=== PATIENT | female | born 1960 | race Caucasian/White ===

== ENCOUNTER 2016-10-22 13:05 | Emergency (ER) | payer MEDICARE ==
[2016-10-22 15:18] LABS: BASOPHILS 0.4 % (0-2); EOSINOPHILS 1.7 % (0-7); HEMATOCRIT 39.7 % (36.0-48.0); HEMOGLOBIN 13.2 g/dL (12-16); IMMATURE GRANULOCYTES 0.3 % (0-5); LYMPHOCYTES 36.2 % (15-50); MCH 30.6 pg (26.0-34.0); MCHC 33.2 g/dL (31.0-37.0); MCV 91.9 fL (80.0-100.0); MEAN PLATELET VOLUME 9.3 fL (7.4-10.4); MONOCYTES 5.2 % (2-11); NEUTROPHILS 56.2 % (40-80); PLATELET COUNT 212 10x3/uL (130-400); RBC 4.32 10x6/uL (4.00-5.40); RDW 13.4 % (11.5-14.5); WBC 10.5 10x3/uL (4.8-10.8)
[2016-10-22 15:28] LABS: APPEARANCE CLEAR (CLEAR); BILIRUBIN NEGATIVE (NEGATIVE); COLOR YELLOW (YELLOW); GLUCOSE NEGATIVE (NEGATIVE); KETONE NEGATIVE (NEGATIVE); LEUKOCYTE ESTERASE NEGATIVE (NEGATIVE); NITRITE NEGATIVE (NEGATIVE); PROTEIN TRACE mg/dL (NEGATIVE); UROBILINOGEN NORMAL (NORMAL)
[2016-10-22 15:44] LABS: ALBUMIN 3.6 g/dL (3.4-5.0); ANION GAP 11.3 mmol/L (8-16); BILIRUBIN - TOTAL 0.24 mg/dL (0.2-1.3); CALCIUM 10.4 mg/dL (8.5-10.1); CARBON DIOXIDE 28.7 mmol/L (21.0-32.0); PROTEIN - SERUM 7.7 g/dL (6.4-8.2)
== END 2016-10-22 16:30 | disposition home or self-care (01) ==
LOC: D.ER 13:05
PROVIDERS: Emergency Medicine
DX: R10.9 Unspecified abdominal pain (principal); E11.9 Type 2 diabetes mellitus without complications; I10 Essential (primary) hypertension; F17.200 Nicotine dependence, unspecified, uncomplicated

== ENCOUNTER → 2017-02-23 09:46 | Outpatient (CLI) | payer MEDICARE | END | disposition home or self-care (01) | LOC: D.MAMMO 09:46 | DX: N63 Unspecified lump in breast (principal) ==

== ENCOUNTER → 2018-07-05 16:49 | Outpatient (CLI) | payer MEDICARE | END | disposition home or self-care (01) | LOC: D.CT 16:49 | DX: R22.1 Localized swelling, mass and lump, neck (principal) ==

== ENCOUNTER 2018-08-18 08:00 | Day surgery (SDC) | payer MEDICARE ==
[2018-08-16 16:27] LABS: BASOPHILS 0.2 % (0-2); EOSINOPHILS 1.5 % (0-7); HEMATOCRIT 35.7 % (36.0-48.0); HEMOGLOBIN 11.7 g/dL (12-16); IMMATURE GRANULOCYTES 0.2 % (0-5); LYMPHOCYTES 30.2 % (15-50); MCH 29.8 pg (26.0-34.0); MCHC 32.8 g/dL (31.0-37.0); MCV 90.8 fL (80.0-100.0); MEAN PLATELET VOLUME 9.6 fL (7.4-10.4); MONOCYTES 5.5 % (2-11); NEUTROPHILS 62.4 % (40-80); PLATELET COUNT 240 10x3/uL (130-400); RBC 3.93 10x6/uL (4.00-5.40); RDW 15.6 % (11.5-14.5); WBC 12.6 10x3/uL (4.8-10.8)
[2018-08-16 16:40] LABS: ANION GAP 18.1 mmol/L (8-16); CARBON DIOXIDE 22.8 mmol/L (21.0-32.0); CREATININE - SERUM 1.3 mg/dL (0.6-1.3); POTASSIUM - SERUM 3.9 mmol/L (3.5-5.1)
[~2018-08-18] VITALS: Ht 162.6 cm; Wt 91.6 kg
--- NOTE | ~2018-08-18 | OP ---
PATIENT NAME: NAUN CHAVEZ MEDICAL RECORD: [id number] :60 LOCATION:.FORMERLY [facility] ADMISSION DATE: SURGEON: NICOLE BERNARDO MD DATE OF OPERATION: 08/18/2018 PREOPERATIVE DIAGNOSES: High-grade cervical dysplasia. POSTOPERATIVE DIAGNOSIS: High-grade cervical dysplasia. PROCEDURE: Loop electrosurgical excision procedure. SURGEON: Nicole Bernardo MD ANESTHESIA: General by LMA. INTRAVENOUS FLUIDS: Per anesthesia record. FINDINGS: 1. Grossly normal-appearing external genitalia. 2. Grossly normal-appearing cervix. SPECIMENS: Cervical cone biopsy. COMPLICATIONS: None apparent. ESTIMATED BLOOD LOSS: Minimal. PROCEDURE IN DETAIL: The patient was taken to the operating room where general anesthesia was achieved without difficulty. The patient was then prepped and draped in normal sterile fashion in the dorsal lithotomy position in the [facility]. Following prep and drape, the bladder was drained of approximately 20 cc of clear yellow urine. An insulated Graves speculum was placed into the vagina and the cervix was identified. A 2 cm x 1 cm loop electrode tip was then used to excise the exocervix to a depth of approximately 7-8 mm. A second smaller LEEP electrode tip was then used to remove some more of the endocervical canal. The cervical crater was then cauterized using the ball tip bipolar cautery. Good hemostasis was noted from the cervical LEEP site and ferrous subsulfate was placed on the area to prevent bleeding. The patient tolerated the procedure well. Speculum was removed from the vagina. The patient was transferred to postanesthesia recovery stable without incident. TRANSINT:[id number] Voice Confirmation ID: [id number] DOCUMENT ID: [id number] NICOLE BERNARDO MD CC: [id number] DICTATION DATE: 08/26/18705 ELECTRICAL SIGN SERVICER: 08/26/18 10[address] [facility] 08/18/18 [place] [address]
[~2018-08-18 08:00] MED LIST: AMBIEN10 MG PO; ATIVAN2 MG PO; BAYER CHEWABLE81 MG PO; BREO ELLIPTA 21 EACH; CYCLOBENZAPRINE10 MG PO; FLUTICASONE PRO16 GM NASAL; GLIMEPIRIDE2 MG PO; GLUCOPHAGE1000 MG PO; LISINOPRIL-HCT1 EAC7 PO; LYRICA75 MG PO; NORVASC10 MG PO; OMEPRAZOLE DR 20 MG; OXYBUTYNIN CHLOR5 M1 PO; PROVENTIL/2.5 MG/3 M INH; SINGULAIR10 MG PO; TRESIBA FL100 UNIT/1 SC; ZOLOFT100 MG PO; ZYLOPRIM300 MG PO
[2018-08-18] MEDS ORDERED: CRESTOR20 MG PO (09:23)
[2018-08-18 09:28] VITALS: BP 128/55; Ht 162.6 cm; Wt 91.6 kg
--- NOTE | 2018-08-18 11:50 | NUR ---
REC'D FROM RR. FAMILY AT BEDSIDE. COFFEE AND FL TRAY TOOK TO PATIENT.
--- NOTE | 2018-08-18 12:20 | NUR ---
TOLERATED FL TRAY. FAMILY AT BEDSIDE.
--- NOTE | 2018-08-18 12:50 | NUR ---
AMBULATED TO BATHROOM. VOIDED WITHOUT DIFFICULTY.
--- NOTE | 2018-08-18 13:00 | NUR ---
IV DC'D WITH CATHETER INTACT. WRITTEN AND VERBAL DC INST GIVEN TO PT ALONG WITH RX. VERBALIZED UNDERSTANDING,
--- NOTE | 2018-08-18 13:15 | NUR ---
DC'D HOME WITH FAMILY VIA PRIVATE VEHICLE. TAKEN TO VEHICLE VIA WC. STABLE AT TIME OF DC.
== END 2018-08-18 13:15 | disposition home or self-care (01) ==
LOC: D.OPS 08:00 → D.PAN 10:00 → D.OPS 10:00
PROVIDERS: Anesthesiology; ATTEND Obstetrics & Gynecology
DX: N87.9 Dysplasia of cervix uteri, unspecified (principal)

== ENCOUNTER 2018-09-13 06:46 | Emergency (ER) | payer MEDICARE ==
[~2018-09-13] VITALS: Ht 162.6 cm; Wt 89.5 kg
[~2018-09-13 06:46] MED LIST changes: +CRESTOR20 MG PO
[2018-09-13 06:50] VITALS: Ht 162.6 cm; Wt 89.5 kg
[2018-09-13] MEDS ORDERED: HYDROCODON-ACE1 EAC2 PO (07:18)
[2018-09-13 08:33] VITALS: BP 137/65
== END 2018-09-13 08:34 | disposition home or self-care (01) ==
LOC: D.ER 06:46
DX: M25.532 Pain in left wrist (principal)

== ENCOUNTER 2018-10-24 08:00 | Outpatient (CLI) | payer MEDICARE, MEDICAID ==
[2018-09-13 06:50] VITALS: BMI 33.9
[~2018-10-24 08:00] MED LIST changes: +HYDROCODON-ACE1 EAC2 PO
== END 2018-10-24 09:00 | disposition home or self-care (01) ==
LOC: D.MAMMO 08:00
PROVIDERS: ATTEND Family Medicine
DX: Z12.31 Encounter for screening mammogram for malignant neoplasm of breast (principal)

== ENCOUNTER → 2019-05-23 07:39 | Outpatient (CLI) | payer MEDICARE, MEDICAID ==
[2018-09-13 06:50] VITALS: BMI 33.9
== END | disposition home or self-care (01) ==
LOC: D.HCCECHO 07:39
PROVIDERS: ATTEND Internal Medicine Cardiovascular Disease
DX: R94.31 Abnormal electrocardiogram [ECG] [EKG] (principal); R06.00 Dyspnea, unspecified; I25.10 Atherosclerotic heart disease of native coronary artery without angina pectoris

== ENCOUNTER 2019-06-20 10:33 | Outpatient (CLI) | payer MEDICARE, MEDICAID ==
[~2019-06-20] VITALS: Ht 162.6 cm; Wt 83.6 kg
--- NOTE | ~2019-06-20 | HEMODYNAMI ---
PATIENT:NAUN CHAVEZ MEDICAL RECORD: [id number] : 60 LOCATION:[facility] ADMISSION DATE: 06/20/19 Generatedon:06/20/201913:03 Patient name: NAUN CHAVEZ Patient #: [id number] : 1960 Date of study: 06/20/2019 Page: Of Hemodynamic Procedure Report Patient Data Patient Demographics Procedure consent was obtained First Name: NAUN Gender: Female Last Name: SCOTT : 1960 [facility] Initial: FIORELLA Age: 59 year(s) Patient #: [id number] Race: SSN: [id number] Additional ID: [id number] Contact details Address: [address] [place] [address] State: [place] City: [facility] Zip code: [address] Past Medical History Allergies Allergen Reaction Date Comments Reported Other allergy 06/20/2019 NSAIDS, Admission Admission Data Admission Date: 06/20/2019 Admission Time: 10:33 Arrival Date: 06/20/2019 Arrival Time: 12:00 Admit Source: Other Insurance Payor: Medicare, Medicaid [facility] #: [id number] Height (in.): 64.17 BSA: 1.9 (m2) Height (cm.): 163 BMI: 31.62 (kg/m2) Weight (lbs.): 185.19 Weight (kg.): 84 Lab Results Lab Result Date: 06/20/2019 Lab Result Time: 0:00 Biochemistry Name Units Result Min Max BUN mg/dl 15 --(--*-)-- 7 18 Creatinine mg/dl 1.3 --(---*)-- 0.6 1.3 eGFR ml/min 44 *-(----)-- 90 120 NONAFRICAN CBC Name Units Result Min Max Hemoglobin g/dl 9.9 *-(----)-- 13.5 17.5 Procedure Procedure Types Cath Procedure Diagnostic Procedure LHC C w/Coronaries Sedation Charges Moderate Sedation up to 15 minutes Procedure Description Procedure Date Procedure Date: 06/20/2019 Procedure Start Time: 12:47 Procedure End Time: 13:01 Procedure Staff Name Function Osman Cullen MD Performing Physician Monica Thomas RT Monitor Luisa Dinh RT Scrub Thao Garcia RN Nurse Procedure Data Cath Procedure Fluoroscopy Diagnostic fluoroscopy Total fluoroscopy Time: 1.8 time: 1.8 min min Diagnostic fluoroscopy Total fluoroscopy dose: 510 dose: 510 mGy mGy Contrast Material Contrast Material Type Amount (ml) Isovue 300 50 Entry Location Entry Primary Successful Side Size Upsize Upsize Entry Closure Buenrostro ccessful Closure Location (Fr) 1 (Fr) 2 (Fr) Remarks Device Remarks Radial Right 6 Fr Mechanical artery Short Compression Estimated blood loss: 10 ml Diagnostic catheters Device Type Used For End Catheter Placement DIAGNOSTIC Millry 110cm 5 Procedure Fr catheter (007575) Procedure Complications No complications Procedure Medications Medication Administration Route Dosage 0.9% NaCl I.V. 100 ml/hr Oxygen etCO2 Nasal cannula 2 l/min Lidocaine 2% added to field 20 Heparin Flush Bag added to field 2 bags (1000units/500ml NS) Radial Cocktail added to field 1 syringe (Verapamil 2mg/Nitro 400mcg/Heparin 1500units) Versed I.V. 2 mg Fentanyl I.V. 50 mcg Versed I.V. 2 mg Fentanyl I.V. 50 mcg Hemodynamics Rest BSA: 1.9 (m2) HGB: 9.9 (g/dl) O2 Consumption: Estimated: 178.52 (ml/min) O2 Cons umption indexed: Estimated:93.96 (ml/min/m) Heart Rate: 67 (bpm) Pressure Samples Time Site Value (mmHg) Purpose Heart Use Rate(bpm) 12:51 LV 147/8,29 Snapshot 69 Gradients Valve Time Site Site Mean SEP/DFP Peak To Heart Use 1 2 (mmHg) (sec/min) Peak Rate (mmHg) (bpm) Aortic 12:52 LV AO 68 Snapshots Pre Cath Intra NCS Post Cath Vital Signs Time Heart Resp SPO2 etCO2 NIBP (mmHg) Rhythm Pain Sedation Rate (ipm) (%) (mmHg) Status Level (bpm) 12:37:50 67 20 96 30 137/71(111) NSR 0 (11) 10(A) , No pain 12:42:08 61 31 96 32 136/67(116) NSR 0 (11) 10(A) , No pain 12:46:28 63 21 96 24.2 119/66(108) NSR 0 (11) 10(A) , No pain 12:50:44 64 14 96 25.7 124/57(98) NSR 0 (11) 10(A) , No pain 12:55:02 71 19 97 30.2 118/59(87) NSR 0 (11) 10(A) , No pain 12:59:18 67 12 95 30.2 122/58(97) NSR 0 (11) 10(A) , No pain Medications Time Medication Route Dose Verified Delivered Reason Notes E ffectiveness by by 12:33:13 0.9% NaCl I.V. 100 Osman Thao used for ml/hr Subhash Garcia cartography teacher 12:33:19 Oxygen etCO2 2 l/min Osman Thao used for Nasal Subhash Garcia procedure cannula RN 12:33:24 Lidocaine 2% added 20ml Osman Osman for local to vial Subhash Cullen MD anesthetic field 12:33:29 Heparin Flush added 2 bags Osman Osman used for Bag to Subhash Cullen MD procedure (1000units/500ml field NS) 12:33:33 Radial Cocktail added 1 Osman Osman used for (Verapamil to syringe Subhash Cullen MD procedure 2mg/Nitro field 400mcg/Heparin 1500units) 12:41:13 Versed I.V. 2 mg Osman Thao for Subhash Garcia sedation RN 12:41:24 Fentanyl I.V. 50 mcg Osman Thao for Subhash Garcia sedation RN 12:47:37 Versed I.V. 2 mg Osman Thao for Subhash Garcia sedation RN 12:47:43 Fentanyl I.V. 50 mcg Osman Thao for Subhash Garcia sedation clinical trial coordinator Log Time Note 12:23:07 Informed consent obtained and on chart 12:24:11 Diagnostic Cath Status : Elective 12:24:29 Monica KUMAR(R) sent for patient. Start room use. 12:24:30 Time tracking: Regular hours (M-F 7:00 - 5:00) 12:24:34 Plan of Care:Hemodynamics will remain stable., Cardiac rhythm will remain stable., Comfort level will be maintained., Respiratory function will remain adequate., Patient/ family verbilizes understanding of procedure., Procedure tolerated without complication., Recovers from procedure without complications.. 12:24:40 Arrival Date: 06/20/2019 12:00:00 PM 12:25:00 Admit Source: Other 12::08 Patient Height : 64.17 inches 12:26:12 Patient Weight : 185.19 lbs 12::18 Insurance Payor : Medicare, Medicaid Lab Result : eGFR NONAFRICAN 44 ml/min 12: Lab Result : Creatinine 1.3 mg/dl 12: Lab Result : BUN 15 mg/dl 12: Lab Result : Hemoglobin 9.9 g/dl 12::15 Patient received from Pre/Post Procedure Room to CCL 2 Alert and oriented. Tansferred to table in Supine position. 12:27:16 Warm blankets applied, and ja hugger turned on for patient comfort. 12::16 Correct patient and procedure confirmed by team. 12:27:17 ECG and BP/O2 sat monitors applied to patient. 12:29:07 3b) 30-44 Moderately reduced kidney function. 12:29:11 Maximum allowable contrast dose (3.7 X eGFR X 0.75)122 ml. 12:33:13 0.9% NaCl 100 ml/hr I.V. was administered by Thao Garcia RN; used for procedure; Verbal order read back and verified. 12:33:19 Oxygen 2 l/min etCO2 Nasal cannula was administered by Thao Garcia RN; used for procedure; Verbal order read back and verified. 12:33:24 Lidocaine 2% 20ml vial added to field was administered by Osman Cullen MD; for local anesthetic; Verbal order read back and verified. 12:33:29 Heparin Flush Bag (1000units/500ml NS) 2 bags added to field was administered by Osman Cullen MD; used for procedure; Verbal order read back and verified. 12:33:33 Radial Cocktail (Verapamil 2mg/Nitro 400mcg/Heparin 1500units) 1 syringe added to field was administered by Osman Cullen MD; used for procedure; Verbal order read back and verified. 12:36:43 Vital chart was started 12:38:05 Baseline sample Acquired. 12:38:09 Full Disclosure recording started 12:38:19 H&P Date Dictated: 06/20/2019 Within 30 days and on chart.. 12:38:21 Pre-procedure instructions explained to patient. 12:38:23 Family in patients room. 12:38:25 Patient NPO since Midnight. 12:38:59 Patient allergic to Other allergyNSAIDS, 12:39:04 Is the patient allergic to Iodine/contrast media? No. 12:39:05 Was the patient premedicated? Yes 12:39:06 Is patient on blood thinner?No 12:39:08 Patient diabetic? Yes. 12:39:10 If diabetic: On Metformin? Yes 12:39:12 If on Metformin: Last Dose? 06/19/2019 12:39:18 Snore? Yes 12:39:19 Sleep apnea? No 12:39:27 Airway obstruction? Yes copd 12:39:31 Dentures? Yes tight 12:39:35 Patient pain scale 0/10 ?. 12:39:41 IV patent on arrival in left forearm with 0.9% NaCl at [facility]. 12:39:47 Lab results completed and on chart. 12:40:25 Stress Test: yes; abnormal inferior, apical 12:40:29 Risk of Mortality: .3 12:40:32 Risk of blood transfusion: 5.3 12:40:35 Risk of CALEB: 4.2 12:40:39 Right Radial & Right Groin area was prepped with chlora-prep and draped in sterile fashion 12:40:45 Physician paged 12:40:46 Physician arrived 12:40:46 --------ALL STOP TIME OUT------ 12:40:47 Final Timeout: patient, procedure, and site verified with staff and physician. All members of the team are in agreement. 12:40:49 Right Radial & Right Groin site verified by team. 12:40:55 Fire Safety Assessment: A--An alcohol-based skin anteseptic being used preoperatively., C--Open oxygen or nitrous oxide is being used., D--An ESU, laser, or fiber-optic light is being used. 12:40:59 Physical assessment completed. ASA score P 2 - A patient with mild systemic disease as per Osman Cullen MD. 12:41:05 Sedation plan: IV Moderate Sedation Medication:Versed, Fentanyl 12:41:10 Use device set Radial Dx or PCI 12:41:11 ACIST Syringe (72956) opened to sterile field. 12:41:12 Medline Cath Pack ([id number]) opened to sterile field. 12:41:12 Bag Decanter () opened to sterile field. 12:41:13 Versed 2 mg I.V. was administered by Thao Garcia RN; for sedation; Verbal order read back and verified. 12:41:13 ACIST Hand Control (54549) opened to sterile field. 12:41:13 ACIST Manifold (61307) opened to sterile field. 12:41:14 Tegaderm 4 x 4 (1626W) opened to sterile field. 12:41:15 MBrace Wrist Support ([id number]) opened to sterile field. 12:41:15 NEEDLE Cook 21G 4cm Radial (B04954) opened to sterile field. 12:41:17 EMERALD Guide Wire (824-565) opened to sterile field. 12:41:18 SHEATH 6FR RAIN (9571274) opened to sterile field. 12:41:24 Fentanyl 50 mcg I.V. was administered by Thao Garcia RN; for sedation; Verbal order read back and verified. 12:47:32 Procedure started. 12:47:37 Versed 2 mg I.V. was administered by Thao Garcia RN; for sedation; Verbal order read back and verified. 12:47:43 Fentanyl 50 mcg I.V. was administered by Thao Garcia RN; for sedation; Verbal order read back and verified. 12:47:44 Local anesthetic to right radial artery with Lidocaine 2% by Osman Cullen MD.INITIAL ACCESS ONLY 12:48:52 A 6 Fr Short sheath was inserted into the Right Radial artery 12:49:32 A DIAGNOSTIC Millry 110cm 5 Fr catheter (226107) was advanced over the wire and used for Procedure. 12:49:38 Zero performed for pressure channel P1 12:49:43 Zero performed for pressure channel P1 12:50:06 LV angiography performed. 12:52:09 EF : 55 % 12:52:30 LV hemodynamics recorded. 12:52:45 LCA angiography performed. 12:53:43 RCA angiography performed. 12:56:27 ZEPHYR REGULAR TR BAND (162143) opened to sterile field. 12:56:41 Catheter removed. 12:56:59 Sheath removed intact; hemostasis achieved with Mechanical Compression to the Right Radial artery. 12:57:18 Procedure ended.(Physican Out) 12:57:42 Fluoroscopy time 01.80 minutes. 12:57:47 Fluoroscopy dose: 510 mGy 12:57:47 Flurop Dose total: 510 12:57:53 Dose Area Product 55137 mGy/cm. 12:58:00 Contrast amount:Isovue 300 50ml. 12:58:07 Maximum allowable dose exceeded? No. 12:58:27 Sharps counted by scrub and verified by R.N. 12:58:36 [place] band inflated with 10cc of air. 12:58:38 Insertion/operative site no bleeding no hematoma. 12:58:51 Post right radial artery:stable 12:58:53 Post Procedure Pulses reassessed and unchanged 12:59:44 Post-procedure physical assessment completed. ASA score P 3 - A patient with severe systemic disease as per Osman Cullen MD. 12:59:48 Post procedure rhythm: unchanged. 12:59:52 Estimated blood loss: 10 ml 12:59:57 Post procedure instruction explained to patient.Patient verbalizes understanding. 13:00:00 Patient needs reinforcement of post procedure teaching. 13:00:12 Procedure type changed to Cath procedure, Diagnostic procedure, LHC, [facility] w/Coronaries, Sedation Charges, Moderate Sedation up to 15 minutes 13:00:14 Procedure and supply charges have been captured, reviewed, submitted and are correct. 13:00:34 Procedure Complication : No complications 13:00:37 Vital chart was stopped 13:00:41 [facility] Findings: MVD- CABG consult 13:00:52 Operative report dictated upon procedure completion. 13:00:54 See physician's report for complete and final results. 13:00:57 Report given to Pre/Post Procedure Room. 13:01:12 Patient transfered to Pre/Post Procedure Room with Stretcher. 13:01:14 Procedure ended. 13:01:14 Full Disclosure recording stopped 13:01:21 End room use (Document Last) 13:02:13 End room use (Document Last) 13:03:02 End room use (Document Last) Device Usage Item Name Manufacture Quantity Catalog Hospital Part Current Minima l Lot# / Number Charge Number Stock Stock Serial# Code ACIST Acist 1 46764 [id number] 807003 525119 20 Syringe Medical (83408) Systems Inc Medline Medline 1 [id number] 469779 43626 810232 5 Cath Pack ([id number]) Bag Microtek 1 2001S 306747 06556 927691 5 Decanter Medical Inc. () ACIST Hand Acist 1 08902 462113 713230 482884 5 Control Medical (99926) Systems Inc ACIST Acist 1 59581 056245 434204 739736 5 Manifold Medical (21046) Systems Inc Tegaderm 4 3M 1 1626W 144609 847313 910526 5 x 4 (1626W) MBrace Advanced 1 140-0250-00 427340 05884 908981 5 Wrist Vascular Support Dynamics ([id number]) NEEDLE Cook Cook Medical 1 [id number] 260258 831706 272411 5 21G 4cm Radial (C71599) EMERALD Cardinal 1 848-178 079538 415581 770571 5 Guide Wire Health (586-227) SHEATH 6FR Cardinal 1 [id number] 030068 6782833 573009 5 [facility] (8817891) DIAGNOSTIC Terumo 1 40-2469 355223 624977 198130 5 Millry 110cm 5 Fr catheter (102319) ZEPHYR Cardinal 1 203841 956876 6640120 633890 5 REGULAR TR Health BAND (839359) Signature Audit [place] Stage Time Signature Unsigned Intra-Procedure 06/20/2019 Monica Thomas 1:01:51 PM RT(R) Intra-Procedure 06/20/2019 Monica Thomas 1:02:13 PM RT(R) Intra-Procedure 06/20/2019 Thao Garcia 1:03:02 PM RN Intra-Procedure 06/20/2019 Osman Cullen MD 1:03:39 PM Signatures Performing Physician : Signature : Osman Cullen MD Date : Time : Monitor : Monica Thomas Signature : RT Date : Time : Nurse : Thao Garica RN Signature : Date : Time : [address] [place] [address]
[2019-06-20 11:35] VITALS: BP 147/96; BMI 31.6
[2019-06-20 12:00] LABS: BASOPHILS 0.4 % (0-2); EOSINOPHILS 0.5 % (0-7); HEMATOCRIT 31.1 % (36.0-48.0); HEMOGLOBIN 9.9 g/dL (12-16); IMMATURE GRANULOCYTES 0.1 % (0-5); LYMPHOCYTES 25.4 % (15-50); MCH 28.4 pg (26.0-34.0); MCHC 31.8 g/dL (31.0-37.0); MCV 89.1 fL (80.0-100.0); NEUTROPHILS 69.6 % (40-80); PLATELET COUNT 249 10x3/uL (130-400); RBC 3.49 10x6/uL (4.00-5.40); RDW 17.1 % (11.5-14.5); WBC 8.2 10x3/uL (4.8-10.8)
[2019-06-20 12:09] LABS: ANION GAP 15.6 mmol/L (8-16); CALCIUM 8.8 mg/dL (8.5-10.1); CARBON DIOXIDE 25.2 mmol/L (21.0-32.0); CHOL - HDL RATIO 5.4 ratio (2.3-4.1); CREATININE - SERUM 1.3 mg/dL (0.6-1.3); LDL-HDL RATIO 2.9 ratio (1.5-3.5); POTASSIUM - SERUM 3.8 mmol/L (3.5-5.1)
--- NOTE | 2019-06-20 13:12 | NUR ---
PT ARRIVED BY STRETCHER. PLACED ON MONITORS. ASSESSMENT COMPLETED. VSS AT THIS TIME. CALL LIGHT WITHIN REACH.
--- NOTE | 2019-06-20 13:25 | NUR ---
PT ON BEDPAN. VOIDED 150CC OF CLEAR YELLOW URINE WITHOUT DIFFICULTY. RAKESH-CARE GIVEN. VSS. RIGHT WRIST Z BAND IN PLACE. NO BLEEDING/HEMATOMA NOTED.
--- NOTE | 2019-06-20 13:45 | NUR ---
PT SET UP WITH SANDWICH TRAY AND COFFEE. DENIES NAUSEA. RIGHT WRIST Z BAND IN PLACE. NO BLEEDING/HEMATOMA NOTED.
--- NOTE | 2019-06-20 14:00 | NUR ---
DR. ADAMS ROUNED AND SPOKE WITH PT AND PT'S FAMILY. UPDATED THEM ON PT'S STATUS. DR. BELLAMY NOTIFIED OF CV CONSULT. 2cc OF AIR REMOVED FROM Z BAND. NO BLEEDING/HEMATOMA NOTED. CALL LIGHT WITHIN REACH.
--- NOTE | 2019-06-20 14:20 | NUR ---
3cc OF AIR REMOVED FROM Z BAND. NO BLEEDING/HEMATOMA NOTED. CALL LIGHT WITHIN REACH.
--- NOTE | 2019-06-20 14:35 | NUR ---
PT NEEDS TO USE RESTROOM. REMOVED FROM MONITORS AND AMBULATED TO RESTROOM. VOIDED WITHOUT DIFFICULTY. RIGHT WRIST Z BAND IN PLACE. NO BLEEDING/HEMAOTMA NOTED. 2cc OF AIR REMOVED FROM Z BAND. TOLERATED WELL.
--- NOTE | 2019-06-20 15:00 | NUR ---
DR. BELLAMY AT BEDSIDE. SPEAKING WITH PT AND PT'S FAMILY. RIGHT WRIST Z BAND IN PLACE. NO BLEEDING/HEMATOMA NOTED.
--- NOTE | 2019-06-20 15:05 | NUR ---
PIV D/C'D WITH CATH TIP INTACT. PT TOLERATED WELL. Z BAND REMOVED AND DRESSING APPLIED. NO BLEEDING/HEMATOMA NOTED. RIGHT WRIST BRACE IN PLACE. PT INSTRUCTED TO GET UP AND DRESSED. FAMILY AT BEDSIDE TO ASSIST.
--- NOTE | 2019-06-20 15:20 | NUR ---
DISCUSSED DISCHARGE INSTRUCTIONS WITH PT AND PT'S FAMILY. THEY VOICED UNDERSTANDING.
[2019-06-20 15:27] VITALS: Ht 162.6 cm; Wt 83.6 kg
--- NOTE | 2019-06-20 15:30 | NUR ---
RIGHT WRIST DRESSING C/D/I. NO S/S OF HEMATOMA NOTED. PT TAKEN OUT TO VEHICLE BY WHEELCHAIR. NO S/S OF DISTRESS NOTED. ALL BELONGINGS AND PAPERWORK IN HAND.
== END 2019-06-20 15:30 | disposition home or self-care (01) ==
LOC: D.CATH 10:33
PROVIDERS: ATTEND Internal Medicine Cardiovascular Disease
DX: I25.119 Atherosclerotic heart disease of native coronary artery with unspecified angina pectoris (principal); R06.00 Dyspnea, unspecified; R94.39 Abnormal result of other cardiovascular function study; E11.9 Type 2 diabetes mellitus without complications; Z79.84 Long term (current) use of oral hypoglycemic drugs; E78.5 Hyperlipidemia, unspecified; I10 Essential (primary) hypertension; Z72.0 Tobacco use

== ENCOUNTER 2019-06-22 13:00 | Inpatient (IN) | payer MEDICARE, MEDICAID ==
[~2019-06-22] VITALS: Ht 162.6 cm; Wt 88.2 kg
[2019-06-22] MEDS ORDERED: ZALEPLON PO (13:51)
[2019-06-22 16:01] LABS: APTT 30.7 SECONDS (22.8-39.4); INR 0.94 (0.85-1.17); PROTIME 12.5 SECONDS (11.6-15.0)
[2019-06-22 16:05] LABS: BASOPHILS 0.3 % (0-2); EOSINOPHILS 1.3 % (0-7); HEMATOCRIT 32.8 % (36.0-48.0); HEMOGLOBIN 10.5 g/dL (12-16); IMMATURE GRANULOCYTES 0.1 % (0-5); LYMPHOCYTES 33.6 % (15-50); MCH 28.5 pg (26.0-34.0); MCV 89.1 fL (80.0-100.0); MONOCYTES 5.3 % (2-11); NEUTROPHILS 59.4 % (40-80); PLATELET COUNT 255 10x3/uL (130-400); RBC 3.68 10x6/uL (4.00-5.40); RDW 16.9 % (11.5-14.5); WBC 9.3 10x3/uL (4.8-10.8)
[2019-06-22 16:16] LABS: ALBUMIN 3.4 g/dL (3.4-5.0); ANION GAP 11.2 mmol/L (8-16); BILIRUBIN - TOTAL 0.2 mg/dL (0.2-1.3); CREATININE - SERUM 1.4 mg/dL (0.6-1.3); PHOSPHOROUS 3.2 mg/dL (2.5-4.9); POTASSIUM - SERUM 4.2 mmol/L (3.5-5.1); PROTEIN - SERUM 6.9 g/dL (6.4-8.2); T4 THYROXIN - FREE 0.89 ng/dL (0.76-1.46); THYROID STIMULATING HORMONE 1.25 uIU/mL (0.36-3.74); URIC ACID 5.3 mg/dL (2.6-7.2)
[2019-06-22 16:35] LABS: APPEARANCE CLEAR (CLEAR); BILIRUBIN NEGATIVE (NEGATIVE); COLOR YELLOW (YELLOW); GLUCOSE NEGATIVE (NEGATIVE); KETONE NEGATIVE (NEGATIVE); NITRITE NEGATIVE (NEGATIVE); PROTEIN 1+ mg/dL (NEGATIVE); UROBILINOGEN NORMAL (NORMAL)
[2019-06-26] VITALS (50 sets, daily range): BP systolic 79–162; BP diastolic 41–65; BMI 32.7
[2019-06-26] MEDS ORDERED: AMBIEN10 MG PO (05:33)
[2019-06-26] MEDS ORDERED: FENOFIBRATE160 MG PO (05:34)
[2019-06-26] MEDS ORDERED: ZANAFLEX4 MG PO (05:34)
--- NOTE | 2019-06-26 06:28 | NUR ---
PT STATED THAT SHE FELT WEAK, AND THOUGH "MY SUGAR IS LOW." PT BLOOD SUGAR CHECKED AND WAS 60. DR HAS NOTIFIED AND ORDERED 1/2 AMP OF D50. SIOBHAN AT BEDSIDE TO START IV. 1/2 AMP OF D50 ADMINISTERED SHORTLY AFTER.
--- NOTE | 2019-06-26 14:00 | NUR ---
ARRIVED TO UNIT AROUND 1341. CONNECTED TO SCUBA DIVING TEACHER. HYPOTENSIVE. SBP 70-80S. RIGHT IJ WITH PLASMOLYTE INFUSING AT 100ML/HR, DOPAMINE AT 3MCG/KG/MIN AND OMID AT 0.9MCG/KG/MIN. ETT SIZE 8.0 22 AT LIP. MIDSTERNAL INCISION WITH DRESSING C/D/I. SUBSTERNAL CT X 3 (2Y'D TOGETHER) CONNECTEED TO SUCTION. NO AIR LEAK NOTED. LEFT EDOUARD DRAIN IN PLACE. LUE AND RLE HARVEST SITES WRAPPED IN COBAN DRESSING. RIGHT RADIAL ARIS IN PLACE. REFUGIO HOSE AND SCD TO LLE. WRIST RESTRAINTS APPLIED UPON ARRIVAL PER ORDER. WILL CONTINUE TO MONITOR.
--- NOTE | 2019-06-26 14:19 | NUR ---
1 UNIT PBC'S GIVEN PER DR. BELLAMY. 250CC PLASMOLYTE BOLUS PER DR. BELLAMY.
--- NOTE | 2019-06-26 15:23 | NUR ---
250 BOLUS OF PLASMOLYTE ORDERED PER DR. BELLAMY.
--- NOTE | 2019-06-26 16:50 | NUR ---
250 BOLUS OF PLASMOLYTE INFUSING PER DR. BELLAMY.
--- NOTE | 2019-06-26 16:51 | NUR ---
OKAY TO SEDATED WITH DIPRIVAN PER DR. BELLAMY.
--- NOTE | 2019-06-26 19:15 | NUR ---
REC'D TO CARE, BS REPORT DONE. SEE INSIDE TECHNICAL SALES REPRESENTATIVE. PT SEDATED ON VENT VIA OETT - SEE FLOWSHEET. SEDATION WITH DIPRIVAN PER MD ORDERS. IVFS INFUSING TO R IJ CVL, DSG C/D/I, SEE FLOWSHEET. WILL TITRATE GTTS PER MD ORDERS - SEE FLOWSHEET. INCISIONS/DRAINS/DSGS PER FLOWSHEET. CRITICORE GARCIA PATENT AND DRAINING CLEAR YELLOW URINE. PEDAL PULSES 2+ PALP. B/L SOFT WRIST RESTRAINTS PER MD ORDER - SEE FLOWSHEET. WILL CONT 1:1 NURSING CARE.
--- NOTE | 2019-06-26 19:58 | NUR ---
DAUGHTER AT , UPDATE GIVEN AND QUESTIONS ANSWERED.
--- NOTE | 2019-06-26 20:25 | NUR ---
Jose G CHAVEZ OPERATING ROOM TECHNICIAN IN TO SEE PT.
--- NOTE | 2019-06-26 20:36 | NUR ---
PT BECAME AGITATED, PULLING AGAINST RESTRAINTS, TRYING TO TALK. REORIENTED BY NURSE, TITRATED OMID AND DIPRIVAN.
--- NOTE | 2019-06-26 21:32 | NUR ---
PT MORE CALM. OCC COUGHING. NO SECRETIONS RETURNED WITH SXN. WEANING OMID GTT PER ORDERS TOLERATED.
--- NOTE | 2019-06-26 22:43 | NUR ---
R.T AT FOR RESP TX. FIO2 TO 80%.
--- NOTE | 2019-06-26 23:08 | NUR ---
REASSESSMENT PER FLOWSHEET, NO ACUTE CHANGES. PT NODS HEAD APPROP, JEAN-PAUL TO COMMAND. CONT Q2H ORAL CARE, TURN, ROM. BACK TO REST EASILY. ALARMS ON. CONT 1:1 NURSING CARE.
[2019-06-27] VITALS (92 sets, daily range): BP systolic 102–147; BP diastolic 38–85; Ht 162.6 cm; Wt 88.2 kg
--- NOTE | 2019-06-27 01:02 | NUR ---
REPOSITIONED UP IN BED TO R SIDE. COOPERATIVE. COUGHS AGAINST VENT, NO RETURN WITH SXN. NEOSYNEPHRINE GTT OFF AT THIS TIME.
--- NOTE | 2019-06-27 03:41 | NUR ---
REASSESSMENT PER FLOWSHEET, NO ACUTE CHANGES. STERILE DSG CHANGE TO R IJ CVL PER HOSPITAL PROTOCOL, NO REDNESS OR SWELLING AT SITE. VSS. PT COOPERATIVE. CONT POC.
--- NOTE | 2019-06-27 04:15 | NUR ---
COMPLETE BATH AND LINEN CHANGE DONE. RAKESH-CARE/GARCIA-CARE DONE. PT COOPERATIVE WITH TURNING. REPOSITIONED UP IN BED.
--- NOTE | 2019-06-27 04:33 | NUR ---
DAUGHTER AT , UPDATE GIVEN AND QUESTIONS ANSWERED.
[2019-06-27 06:43] LABS: HEMATOCRIT 34.2 % (36.0-48.0); MCH 28.1 pg (26.0-34.0); MCHC 32.2 g/dL (31.0-37.0); MCV 87.2 fL (80.0-100.0); RBC 3.92 10x6/uL (4.00-5.40); RDW 16.6 % (11.5-14.5)
--- NOTE | 2019-06-27 07:10 | NUR ---
SHIFT REPORT RECEIVED. PT REMAINS INTUBATED. A/C, TV 500, FIO2 70%, PEEP 10. PT IS AWAKE AND FOLLOWS COMMANDS. RIJ WITH PLASMOLYTE, DOPAMINE, PROPOFOL, ZINACEF AND INSULIN INFUSING. SEE IV FLOWSHEET FOR RATES. MIDSTERNAL DRESSING C/D/I. SUBSTERNAL CT X 3 TO SUCTION. NO AIR LEAK NOTED. EDOUARD DRAIN COMPRESSED. LUE AND LLE WRAPPED IN COBAN DRESSING. RIGHT ARIS IN PLACE. ZEROED AT THIS TIME. GARCIA CATHETER IN PLACE WITH CONCENTRATED URINE NOTED. WRIST RESTRAINTS IN PLACE PER ORDER. SAFETY MEASURES IN PLACE. NURSE AT BEDSIDE FOR CLOSE MONITORING.
[2019-06-27 07:21] LABS: ALBUMIN 2.5 g/dL (3.4-5.0); ANION GAP 17.3 mmol/L (8-16); BILIRUBIN - TOTAL 0.33 mg/dL (0.2-1.3); CALCIUM 8.1 mg/dL (8.5-10.1); CARBON DIOXIDE 23.6 mmol/L (21.0-32.0); CREATININE - SERUM 1.7 mg/dL (0.6-1.3); MAGNESIUM - SERUM 2.2 mg/dL (1.8-2.4); PHOSPHOROUS 5.6 mg/dL (2.5-4.9); POTASSIUM - SERUM 3.9 mmol/L (3.5-5.1); PROTEIN - SERUM 5.5 g/dL (6.4-8.2)
--- NOTE | 2019-06-27 08:58 | NUR ---
WEAN OFF DOMAPINE IN 3HRS PER DR. BELLAMY.
--- NOTE | 2019-06-27 09:58 | NUR ---
DR. BELLAMY OKAY TO HAVE PT ON NITRO DRIP AND DOPAMINE. DC DOPAMINE IF PT STAY HYPERTENSIVE. FIO2 DECREASED TO 60% PER DR. BELLAMY.
--- NOTE | 2019-06-27 10:51 | OP ---
PATIENT NAME: NAUN CHAVEZ MEDICAL RECORD: [id number] :60 LOCATION:D.CVI D.CV07 ADMISSION DATE:06/26/19 SURGEON: GARFIELD BELLAMY MD DATE OF OPERATION: 06/26/2019 SURGEON: Garfield Bellamy MD PIECE GOODS CLERK: Jessica Law MD OPERATION PERFORMED: 1. Coronary artery bypass graft times 4 (left internal mammary to LAD, radial artery from aorta to right coronary artery, reverse saphenous vein graft from aorta to first diagonal, aorta to first obtuse marginal) to arterial to venous conduits. 2. Left radial artery open harvest. 3. Endoscopic saphenous vein harvest. PREOPERATIVE DIAGNOSIS: Coronary artery disease. POSTOPERATIVE DIAGNOSIS: Coronary artery disease plus emphysema. ANESTHESIA: General endotracheal anesthesia. ESTIMATED BLOOD LOSS: Total cardiopulmonary bypass with Cell Saver retransfusion, one packed red blood cells, 1 platelet. COMPLICATIONS: None. CONDITION: Critical. DISPOSITION: CV ICU. SPECIMENS: None. OPERATIVE FINDINGS: 1. Preop hypoglycemia treated with glucose. Later, hyperglycemia intraoperatively treated with intravenous insulin. 2. Dilated right ventricle with good contractility by ERASMO. 3. Small caliber left radial artery, used to the right coronary graft. 4. Good quality greater saphenous vein. 5. Good quality left internal mammary artery to LAD was 2.0 mm with posterior plaque. 6. Right coronary artery 1.5 mm posterior descending and posterolateral branch of the right coronary artery, small. 7. First diagonal 2.0-mm vessel with severe disease. 8. First obtuse marginal 2.0 mm vessel. The more distal obtuse marginal was small. 9. Hypoxemia about 20 minutes after separation from cardiopulmonary bypass. Prior to closing the chest responded to hyperventilation and positive pressure. Bronchoscopy by anesthesia was negative. OPERATIVE INDICATION: Coronary artery disease. DESCRIPTION OF PROCEDURE: The patient was brought to the operating suite. General anesthesia was obtained, the patient was prepped and draped. Greater OPERATIVE REPORT [id number] NAUN CHAVEZ saphenous vein harvested endoscopically in the right lower extremity. Side branch divided with electrocautery. The vessel ligated proximally and distally removed. Side branches were tied. Thin sites were oversewn. Dr. Law was the virtual customer assistant for this portion of the case. Use of an virtual customer assistant surgeon to remove vein, tie off the branches, and oversew leakage sites saved about 30 minutes of general anesthetic time. Continuing left radial artery harvest opened using electrocautery and clips. Vessel ligated proximally and distally with Prolene suture perfused with papaverine containing solution and soaked in papaverine gauze until time of use. Arm was closed with subcutaneous skin and clips. Median sternotomy incision was made. Subcutaneous tissue was divided with electrocautery. Sternum was divided with a saw. The left hemisternum was elevated. Left pleural cavity was entered. Left internal mammary vein takedown as a pedicle graft. Sternal retractor was placed. Pericardium was opened. Heparin was given. Aorta was cannulated. Dual stage venous cannula was inserted. The internal mammary was clipped distally and made ready for anastomosis. Activated clotting time was appropriately elevated. The patient was placed on cardiopulmonary bypass. Sites for distal anastomosis was selected. The patient was cooled. Antegrade cardioplegia needle was inserted. Crossclamp was placed. Cardioplegia was given antegrade. This repeated at 15 minute intervals including down the completed vein grafts. Distal anastomosis was performed in standard technique. Proximal anastomoses 2.7 mm punch for the radial and 4.0 mm punch for the veins. The aortic root was deaired, the vein graft tied down and graft de-aired and flow restored. Proximal and distal anastomosis inspected for bleeding. The patient resumed a spontaneous rhythm, fully rewarmed, weaned from cardiopulmonary bypass and stable. The patient was decannulated. The cannula sites were oversewn. Protamine was given. Thorough irrigation was undertaken. Left chest was evacuated, irrigated. Right chest was entered. On opening the chest, it was also evacuated. Drains placed in both the mediastinum and both pleural cavities. Atrioventricular pacing wires were placed. The patient was stable and gradually appropriately. Pericardial fat was loosely reapproximated internal mammary harvest site was inspected for bleeding. Sternum was closed with wires. Fascia was closed. Subcutaneous tissues were closed. Skin was closed, Dermabond was placed. The needle and sponge counts reported as correct. The patient was taken to the ICU in stable condition. TRANSINT:[id number] Voice Confirmation ID: [id number] DOCUMENT ID: [id number] OPERATIVE REPORT [id number] NAUN CHAVEZ, GARFIELD Porter MD at 1051 CC: MANDO ADAMS M.D. and NICOLE WEAVER [id number] DICTATION DATE: 06/26/19 1426 RETURNED GOODS INSPECTOR: 06/26/192119 ADM IN [place] [id number] [place] [id number]
--- NOTE | 2019-06-27 11:25 | NUR ---
HR INCREASED TO 130S. DR. BELLAMY NOTIFIED. 12 LEAD EKG OBTAIN. SHOWING A-FIB WITH RVR. ORDERS RECEIVED. DOPAMINE DISCONTINUED. TPM PACER WIRES CONNECTED PER DR. BELLAMY. WILL CONTINUE TO MONITOR.
--- NOTE | 2019-06-27 14:00 | NUR ---
PT RESTING COMFORTABLY AT THIS TIME. NURSE AT BEDSIDE. WILL CONTINUE TO MONITOR.
[2019-06-27 14:28] LABS: % SATURATION 5 % (15-55); IRON 17 ug/dl (35-150); TOTAL IRON BIND CAPACITY 296 ug/dl (260-445); UNSAT IRON BIND CAPACITY 279 ug/dl (150-375)
--- NOTE | 2019-06-27 15:15 | NUR ---
RE-ASSESSMENT COMPLETED. PT RESTLESS. PAIN MEDICATION GIVEN PER ORDERS. HR IN LOW 100S A-FIB. BP 118/53. REPOSITIONED FOR COMFORT. WILL CONTINUE TO MONITOR CLOSELY.
--- NOTE | 2019-06-27 16:36 | NUR ---
HR 100S-129 UNCONTRO[address]ED A-FIB. DR. BELLAMY NOTIFIED. ORDERS RECEIVED.
--- NOTE | 2019-06-27 18:17 | NUR ---
TOTAL URINE OUTPUT IN LAST [address] BELLAMY NOTIFIED. NO NEW ORDERS RECEIVED.
--- NOTE | 2019-06-27 19:00 | NUR ---
REPORT RECEIVED CARE ASSUMED ASSESSMENT DONE SEE FLOW SHEET VSS.
--- NOTE | 2019-06-27 19:37 | NUR ---
RUE INCISION DRESSED. REFUGIO HOSE APPLIED TO RLE. SCDS PUT IN PLACE. VSS. NO SIGNS OF ACUTE DISTRESS NOTED WILL CONTINUE TO MONITOR.
--- NOTE | 2019-06-27 20:00 | NUR ---
RHYTHM CHANGE NOTED LABS DRAWN.
[2019-06-27 20:19] LABS: MAGNESIUM - SERUM 2.4 mg/dL (1.8-2.4); POTASSIUM - SERUM 4.4 mmol/L (3.5-5.1)
--- NOTE | 2019-06-27 20:21 | NUR ---
FAMILY AT BEDSIDE. 1 PACK A DAY SMOKING HISTORY FOR 20 YEARS VERIFIED.
--- NOTE | 2019-06-27 21:11 | NUR ---
DR BELLAMY INFORMED OF PT STATUS. ORDERS RECEIVED. MEDS GIVEN PER MAR. VSS WILL CONITNUE TO MONITOR.
--- NOTE | 2019-06-27 23:00 | NUR ---
REASSESSMENT DONE SEE FLOW SHEET VSS NO SIGNS OF ACUTE DISTRESS NOTED WILL CONTINUE TO MONITOR.
[2019-06-28] VITALS (29 sets, daily range): BP systolic 102–138; BP diastolic 55–72
--- NOTE | 2019-06-28 01:00 | NUR ---
COMPLETE BED BATH GIVEN. LINEN CHANGE PROVIDED. VSS. WILL CONTINUE TO MONTIOR.
--- NOTE | 2019-06-28 03:00 | NUR ---
REASSESSMENT DONE SEE FLOW SHEET VSS
[2019-06-28 05:57] LABS: HEMATOCRIT 30.4 % (36.0-48.0); HEMOGLOBIN 9.6 g/dL (12-16); MCH 28.1 pg (26.0-34.0); MCHC 31.6 g/dL (31.0-37.0); MCV 88.9 fL (80.0-100.0); MEAN PLATELET VOLUME 9.9 fL (7.4-10.4); RBC 3.42 10x6/uL (4.00-5.40); RDW 16.9 % (11.5-14.5); WBC 13.2 10x3/uL (4.8-10.8)
[2019-06-28 06:22] LABS: ALBUMIN 2.3 g/dL (3.4-5.0); ANION GAP 12.9 mmol/L (8-16); BILIRUBIN - TOTAL 0.14 mg/dL (0.2-1.3); CREATININE - SERUM 1.4 mg/dL (0.6-1.3); MAGNESIUM - SERUM 2.4 mg/dL (1.8-2.4); POTASSIUM - SERUM 3.9 mmol/L (3.5-5.1); PROTEIN - SERUM 5.4 g/dL (6.4-8.2)
[2019-06-28 06:23] LABS: PHOSPHOROUS 3.6 mg/dL (2.5-4.9)
--- NOTE | 2019-06-28 08:30 | NUR ---
0700 PT RECIEVED LIGHTLY SEDATED, AROUSES TO VERBAL STIMULI AND FOLLOWS COMMANDS, VSS, R IJ CVL DRESSING CDI SEE IV FLOWSHEET, ETT SECURED, SEE SHIFT ASSESSMENT, CTX3 WITH 2 Y'D TOGETHER AND EDOUARD DRAIN COMPRESSED, TPM WIRES ATTACHED AND TPM OFF, GARCIA DRAINING YELLOW URINE, TEDS AND SCDS IN PLACE, HR AFIB ALARMS SET ON MONITOR 0800 DR BELLAMY IN UNIT, ORDERS FOR LASIX AND DC PLASMALYTE, FAMILY HERE FOR VISITATION AND UPDATED
--- NOTE | 2019-06-28 08:37 | NUR ---
HR NSR 60S, HARSHIL DR GRIMALDO NURSE IN UNIT AND NOTIFIED
--- NOTE | 2019-06-28 11:14 | NUR ---
dr hinojosa in unit lowered peep to 6. rt notified
--- NOTE | 2019-06-28 12:21 | NUR ---
RECIEVED CALL FROM DR SHIPLEY TO INCREASE PEEP TO 8 DUE TO SPO2 90-91
--- NOTE | 2019-06-28 13:25 | TEE ---
PATIENT:NAUN CHAVEZ MEDICAL RECORD: [id number] LOCATION:[place] [address] AGE OF PATIENT: 59 ADMISSION DATE: 06/26/19 SEX: F REFERRING PHYSICIAN: INTERPRETING PHYSICIAN: DARSHAN BRUNNER MD TRANSESOPHAGEAL ECHOCARDIOGRAM Date: 06/26/19 ERASMO CHARGE Y INDICATIONS: CABG PREMEDICATIONS: PATIENT'S RESPONSE PROCEDURE DOPPLER MEASUREMENTS: LVIT LA PA RA LVOT RVOT Asc. Ao AV Gradient Peak AV Mean AV Area MV Gradient Peak MV Mean MV Area INTERPRETATION: LVd: 4.8 cm LVs: 2.6 cm LA: 3.4 cm Doppler: 2-D: COLOR FLOW DOPPLER NORMAL SALINE STUDY: MISCELLANOUS: DIAGNOSIS: PLAN: Oven Operator:Ash Cullen Dividing Machine Operator Helper: Deysi WARE COMMENTS: DATE OF SERVICE: 06/26/2019 PROCEDURE: Intraoperative transesophageal echo. FINDINGS: Preop: Normal LV function. Normal wall motion. Normal EF. Valves appear normal. Postop: Normal LV function, normal EF 55%. No significant valve abnormality. TRANSINT:[id number] Voice Confirmation ID: [id number] DOCUMENT ID: [id number] TRANSESOPHAGEAL ECHOCARDIOGRAM REPORT [id number] NAUN CHAVEZ at 1325 CC: [id number] DICTATION DATE: 06/26/19 1428 HEAD FILTER TANK TENDER HELPER: 06/27/19 0647 ADM IN [facility] [address] [place] [address]
--- NOTE | 2019-06-28 15:57 | NUR ---
SUBSTERNAL DRESSING CHANGED, PROPOFOL WITH TUBING CHANGED
--- NOTE | 2019-06-28 19:00 | NUR ---
REPORT RECEIVED CARE ASSUMED ASSESSMENT DONE SEE FLOW SHEET VSS. TEACHING PROVIDED. BOARD UPDATED. QUESTIONS ANSWERED. NO SIGNS OF ACUTE DISTRESS NOTED WILL CONTINUE TO MONITOR.
--- NOTE | 2019-06-28 20:55 | NUR ---
O2 SAT BELLOW 92%. RT AT BEDSIDE. FIO2 TO 70%. SUCTION, ORAL CARE, MOVEMENT PROVIDED. 02 SAT IN TARGET RANGE. WILL CONTINUE POC.
--- NOTE | 2019-06-28 20:58 | MORECARE ---
CASE MANAGEMENT DISCHARGE SUMMARY PATIENT: NAUN CHAVEZ UNIT: [id number] ADM DATE: 06/26/19 AGE: 59 : 60 SEX: F ROOM/BED: [facility] AUTHOR: MELINDA BISHOP PHYSICIAN: REFERRING PHYSICIAN: PETRA BELLAMY MD DATE OF SERVICE: 06/28/19 Discharge Plan Patient Name: NAUN CHAVEZ [facility] [facility] 1960 Planned Disposition: Anticipated Discharge Date: Discharge Date: Expected LOS: Initial Reviewer: [email or web address] Initial Review Date: 06/28/2019 Generated: 06/28/19 9:58 pm Patient Name: NAUN CHAVEZ Page [phone] at 2057 All edits/amendments must be made on the electronic document DICTATION DATE: 06/28/192057 INTEGRITY MANAGER: YEMI 06/28/192057 RPT#: [id number] DC DATE: STATUS: ADM IN [facility] [address] [place] [address] END OF REPORT
--- NOTE | 2019-06-28 21:11 | MORECARE ---
CASE MANAGEMENT DISCHARGE SUMMARY PATIENT: NAUN CHAVEZ UNIT: [id number] ADM DATE: 06/26/19 AGE: 59 : 60 SEX: F [facility] AUTHOR: EDNA,DOC PHYSICIAN: REFERRING PHYSICIAN: PETRA BELLAMY MD DATE OF SERVICE: 06/28/19 Discharge Plan Patient Name: NAUN CHAVEZ Facility: [facility]:[place] : 1960 Planned Disposition: Anticipated Discharge Date: Discharge Date: Expected LOS: Initial Reviewer: [email or web address] Initial Review Date: 06/28/2019 Generated: 06/28/19 10:11 pm Comments DCP- Discharge Planning Updated by [email or web address]: Rizwana Vidal on 06/28/19 8:[address] Patient Name: NAUN CHAVEZ Admission Status: Urgent Accout number: [id number] Admission Date: 06-26-2019 : 1960 Admission Diagnosis: Attending: PETRA BELLAMY Current LOS: 2 Anticipated DC Date: Planned Disposition: Primary Insurance: [facility] [employer] Discharge Planning Comments: CM met with patient's daughter Crystal Julian to complete initial dc planning assessment. Patient is currently on vent and sedated. CM educated Crystal on the CM role and verbal consent given by patient to complete assessment. Patient lives at home with her daughter where she is independent with her care. At discharge patient plans to return home and feels this is a safe discharge. CM discussed availability of home health, rehab services, and medical equipment. Her daughter will be her tower truck driver home. Patient has a nebulizer Patient denied known discharge needs at this time. CM will continue to follow and will assist as needed with dc plans/needs. Activity Aide: Rizwana Vidal DCPIA - Discharge Planning Initial Assessment Updated by [email or web address]: Rizwana Vidal on 06/28/19 9:07 pm * How many steps to enter\exit or inside your home? * PCP unknown * Pharmacy [facility] * Preadmission Environment Home with Family * ADLs Independent * Equipment Nebulizer * List name and contact numbers for known caregivers / representatives who currently or will assist patient after discharge: CRYSTAL JULIAN - DAUGHTER- [phone] * Verbal permission to speak to the caregivers and representatives has been obtained from the patient. N/A * Community resources currently utilized None * Additional services required to return to the preadmission environment? No * Can the patient safely return to the preadmission environment? Yes * Has this patient been hospitalized within the prior 30 days at any hospital? No Last DP export: 06/28/19 7:58 p Patient Name: NAUN CHAVEZ Page 76915 at 2111 All edits/amendments must be made on the electronic document DICTATION DATE: 06/28/192110 CLAY PIGEON LOADER: YEMI 06/28/192110 RPT#: [id number] DC DATE: STATUS: ADM IN [facility] [address] [place] [address] END OF REPORT
--- NOTE | 2019-06-28 23:00 | NUR ---
REASSESSMENT DONE SEE FLOW SHEET. VSS.
[2019-06-29] VITALS (23 sets, daily range): BP systolic 99–120; BP diastolic 40–57
--- NOTE | 2019-06-29 02:09 | NUR ---
COMPLETE BED BATH GIVEN. LINEN CHANGE PROVIDED. GARCIA CARE PROVIDED. LUE DRESSING CHANGED.
[2019-06-29 05:02] LABS: HEMATOCRIT 28.2 % (36.0-48.0); MCH 28.8 pg (26.0-34.0); MCHC 31.9 g/dL (31.0-37.0); MCV 90.1 fL (80.0-100.0); MEAN PLATELET VOLUME 10.3 fL (7.4-10.4); RBC 3.13 10x6/uL (4.00-5.40); RDW 16.5 % (11.5-14.5); WBC 11.8 10x3/uL (4.8-10.8)
[2019-06-29 05:14] LABS: ALBUMIN 2.1 g/dL (3.4-5.0); ANION GAP 10.1 mmol/L (8-16); BILIRUBIN - TOTAL 0.36 mg/dL (0.2-1.3); CALCIUM 7.6 mg/dL (8.5-10.1); CARBON DIOXIDE 29.4 mmol/L (21.0-32.0); CREATININE - SERUM 1.3 mg/dL (0.6-1.3); MAGNESIUM - SERUM 1.9 mg/dL (1.8-2.4); POTASSIUM - SERUM 3.5 mmol/L (3.5-5.1); PROTEIN - SERUM 5.5 g/dL (6.4-8.2)
--- NOTE | 2019-06-29 06:25 | NUR ---
DR BELLAMY UPDATED ON PT STATUS. ORDERS RECEIVED.
--- NOTE | 2019-06-29 07:31 | NUR ---
0700 PT RECIEVED LIGHTLY SEDATED, EASY TO AROUSE, ETT SECURED, R IJ CVL DRESSING CDI WITH KCL, INSULIN AND PROPOFOL INFUSING, MIDSTERNAL AND SUBSTERNAL DRESSINGS CDI, SUBSTERNAL CTX3 WITH 2 Y'D TOGETHER, EDOUARD DRAIN COMPRESSED, TPM WIRES ATTACHED AND TURNED OFF, GARCIA DRAINING YELLOW URINE, TEDS AND SCDS IN PLACE, PT DENIES PAIN AT THIS TIME
--- NOTE | 2019-06-29 08:11 | NUR ---
DR BELLAMY IN UNIT, ORDERS TO DROP FIO2 TO 60, RT NOTIFIED AND CHANGED
--- NOTE | 2019-06-29 08:37 | NUR ---
0830 SPO2 88% RT NOTIFIED WHO SAID TO NOTIFY DR BELLAMY BEFORE TURNING IT UP, DR BELLAMY IN OR SPOKE WITH HIS NURSE HARSHIL WHO SAID TO TURN FIO2 BACK TO 70% AND TRY TO WEAN AGAIN LATER ON. RT NOTIFIED AND FIO2 70%. SPO2 UP TO 90%
--- NOTE | 2019-06-29 11:21 | NUR ---
Nutrition Follow-up: Remains intubated. Spoke with RN this AM re: possible TF; waiting to speak with Dr. Gonzalez. Diet: NPO Wt: 199# (06/29); 196.9# (06/27) No BMs recorded Labs noted: Glu 155, Ca 7.6, Alb 2.1 Meds noted: Diprivan, Humulin, KCl -If pt remains intubated, rec Pulmocare @ goal rate of 40. -Monitor wt. -RD following.
--- NOTE | 2019-06-29 12:31 | NUR ---
DR SHIPLEY IN ROOM AND UPDATED ON PT, ORDERS FOR FENTANYL GTT, OK FOR TUBE FEEDS
--- NOTE | 2019-06-29 13:37 | NUR ---
K CALLED TO DR BELLAMY ORDERS FOR KCL 20 BID
--- NOTE | 2019-06-29 13:39 | NUR ---
OGT INSERTED, AUSCULTATED, AWAITING CXR
--- NOTE | 2019-06-29 14:10 | NUR ---
NGT PLACEMENT NOT CONFIRMED WITH CXR, SPOKE WITH DR COSTA WHO SAID HE WOULD PROBABLY NEED AND ABD FILM TO CONFIRM, CALLED DR STACY AND ORDERS FOR KUB RECIEVED, NOTIFIED RADIOLOGY
--- NOTE | 2019-06-29 14:45 | NUR ---
SPOKE WITH ASHUTOSH IN MATERIALS FOR FEEDING PUMP
--- NOTE | 2019-06-29 15:37 | NUR ---
LINENS CHANGED, TUBE FEEDS INITIATED
--- NOTE | 2019-06-29 17:19 | NUR ---
SUBSTERNAL DRESSING CHANGED, TPM WIRES COILED PER DR BELLAMY, TPM AT BEDSIDE PT REPOSITONED [id number] AND NEEDEDTHROUGHOUT SHIFT, PTS DAUGHTERS HERE FOR EACH VISITATION AND UPDATE PROVIDED
--- NOTE | 2019-06-29 19:00 | NUR ---
ASSESSMENT DONE SEE FLOW SHEET VSS NO SIGNS OF ACUTE DISTRESS NOTED.
--- NOTE | 2019-06-29 19:55 | NUR ---
DR BELLAMY INFORMED OF PT STATUS. ORDERS RECEIVED. SETTER JUICE PACKAGING MACHINES INFORMED OF SPECIALY BED ORDER.
--- NOTE | 2019-06-29 21:00 | NUR ---
MEDS GIVEN PER MAR. NO SIGNS OF ACUTE DISTRESS NOTED.
--- NOTE | 2019-06-29 23:00 | NUR ---
REASSESSMENT DONE SEE FLOW SHEET VSS
[2019-06-30] VITALS (23 sets, daily range): BP systolic 99–127; BP diastolic 42–66
--- NOTE | 2019-06-30 03:00 | NUR ---
REASSESSMENT DONE SEE FLOW SHEET VSS NO SIGNS OF ACUTE DISTRESS NOTED WILL CONTINUE TO MONITOR.
--- NOTE | 2019-06-30 05:07 | NUR ---
IO COLLECTED. ROOM CLEANED. DECREASE IN 02 SAT NOTED. SUCTION AND TURING PROVIDED WILL CONTINUE TO MONITOR.
[2019-06-30 05:19] LABS: HEMATOCRIT 28.6 % (36.0-48.0); HEMOGLOBIN 8.8 g/dL (12-16); MCHC 30.8 g/dL (31.0-37.0); MCV 91.1 fL (80.0-100.0); MEAN PLATELET VOLUME 10.2 fL (7.4-10.4); RBC 3.14 10x6/uL (4.00-5.40); RDW 16.5 % (11.5-14.5); WBC 9.8 10x3/uL (4.8-10.8)
[2019-06-30 05:33] LABS: ALBUMIN 2.1 g/dL (3.4-5.0); ANION GAP 10.9 mmol/L (8-16); BILIRUBIN - TOTAL 0.4 mg/dL (0.2-1.3); CALCIUM 8.1 mg/dL (8.5-10.1); CARBON DIOXIDE 28.2 mmol/L (21.0-32.0); CREATININE - SERUM 1.3 mg/dL (0.6-1.3); MAGNESIUM - SERUM 2.1 mg/dL (1.8-2.4); PHOSPHOROUS 3.3 mg/dL (2.5-4.9); POTASSIUM - SERUM 4.1 mmol/L (3.5-5.1); PROTEIN - SERUM 5.8 g/dL (6.4-8.2)
--- NOTE | 2019-06-30 08:39 | NUR ---
0730-RECIEVED PER FLOW SHEET-SUCTIONED FOR LARGE AMOUNT OF THIS CLEAR MUCUS-PT AWAKENED-TOLERATED MODERATELY-O2 SAT DECREASED T0 88% FOR SLOW RETURN TO 90%SAT-TIME PERIOD FOR RECOVERY APPROX 3-5MIN
--- NOTE | 2019-06-30 09:46 | NUR ---
TURNED TO R SIDE-PUL TOILET-SMALL THICK CLEAR MUCUS
--- NOTE | 2019-06-30 10:19 | NUR ---
DR STACY AT BEDSIDE DR BELLAMY AT BEDSIDE
--- NOTE | 2019-06-30 11:12 | NUR ---
1040-RT NOTIFIED OF DR SHIPLEY ORDERS FOR BRONCOSCOPY AT [facility]-CALLED 1ST CALL DAUGHTER IDENTIFIED CHER SAWYER FOR TELEPHONE CONSENT-PROCEDURE EXPLAINED TO DAUGHTER, REASON FOR PROCEDURE, AND POSSIBLE BENEFITS-
--- NOTE | 2019-06-30 12:32 | NUR ---
1230-DAUGHTER AT BEDSIDE STATUS REPORT GIVEN
--- NOTE | 2019-06-30 13:45 | NUR ---
2 DAUGHTERS AT BEDSIDE-ASKING ABOUT INFO DR BELLAMY GAVE ADDITIONAL SISTER-INFORMED WAS NOT PRESENT DURING TELEPHONE CONVERSATION-SISTERS NEEDS TO RELAY IT
--- NOTE | 2019-06-30 13:55 | NUR ---
REFAXED BED OVERLAY ORDER TO [facility] [employer] [employer]
--- NOTE | 2019-06-30 16:55 | NUR ---
DAUGHTERS AT BEDSIDE-QUESTIONS AND CONCERNS ADDRESSED
--- NOTE | 2019-06-30 17:50 | NUR ---
SKIN CARE [id number] REDDENED AREA-REFAXED AND NOTIFIED REMEDIATION TECHNICIAN OF NEED FOR OVERLAY
--- NOTE | 2019-06-30 18:00 | NUR ---
SPOKE WITH DAY CARE HOME PROVIDER REGARDING OVERLAY-STRESSED NOTED REDDENED AREA AT CURRENT SKIN CARE EVAL AND ALSO PERSISTANT SACRAL EDEMA-STATED DOES NOT QUALIFY UNTIL EVALUATED BY SHELVER-NOT AVAILABLE ON WEEKEND
--- NOTE | 2019-06-30 19:00 | NUR ---
REPORT RECEIVED AND CARE ASSUMED. PATIENT RECEIVED IN BED , SEDATED AND INTUBATED. ETT INTACT/SECURE/PATENT CONNECTED TO [facility] VENT AT ORDERED SETTINGS. LEFT CHEST TUBES INTACT/SECURE/PATENT CONNECTED TO 20 CM SUCTION AND DRAINING SMALL AMOUNT OF SEROSANGUINEOUS FLUID INTO COLLECTION CHAMBER. EDOUARD DRAIN INTACT/SECURE/PATENT AND COMPRESSED. ASSESSMENT COMPLETED PER FLOW SHEET WITH NO ACUTE DISTRESS OBSERVED. MONITORS CONNECTED TO PATIENT WITH ALARMS SET. VSS.
--- NOTE | 2019-06-30 21:00 | NUR ---
SEDATED/INTUBATED. VSS.
--- NOTE | 2019-06-30 23:00 | NUR ---
REASSESSMENT COMPLETED PER FLOW SHEET WITH NO ACUTE DISTRESS OBSERVED. VSS. ETT INTACT/SECURE/PATENT AND CONNECTED TO MECHANICAL VENT AT ORDERED SETTINGS. CHEST TUBES INTACT/SECURE/PATENT DRAINING SCANT AMOUNT OF SEROUS FLUID INTO COLLECTION CHAMBERS.
[2019-07-01] VITALS (71 sets, daily range): BP systolic 84–150; BP diastolic 39–75
--- NOTE | 2019-07-01 01:00 | NUR ---
SEDATED. ROUSES TO VOICE/TACILE STIMULI. ETT INTACT/SECURE/PATENT CONNECTED TO MECHANICAL VENT AT ORDERED SETTINGS. TURNED AND REPOSITIONED. ORAL CARE GIVEN. MAYRA WELL. VSS
--- NOTE | 2019-07-01 03:00 | NUR ---
REASSESSMENT COMPLETED PER FLOW SHEET WITH NO ACUTE DISTRESS OBSERVED. VSS. HOB ELEVATED 30 DEGREES. ETT INTACT/SECURE/PATENT [facility] WITH [facility]TINGS ORDERED.
--- NOTE | 2019-07-01 04:00 | NUR ---
TEMP DOWN TO 37.6 C PER GINA GARCIA
--- NOTE | 2019-07-01 05:00 | NUR ---
AIR OVERLAY RECEIVED AND PLACED ON PATIENTS BED.
[2019-07-01 06:04] LABS: HEMATOCRIT 27.3 % (36.0-48.0); HEMOGLOBIN 8.3 g/dL (12-16); MCH 27.8 pg (26.0-34.0); MCHC 30.4 g/dL (31.0-37.0); MEAN PLATELET VOLUME 10.2 fL (7.4-10.4); RBC 2.99 10x6/uL (4.00-5.40); RDW 16.4 % (11.5-14.5)
[2019-07-01 06:29] LABS: ALBUMIN 1.8 g/dL (3.4-5.0); ANION GAP 11.8 mmol/L (8-16); BILIRUBIN - TOTAL 0.33 mg/dL (0.2-1.3); CARBON DIOXIDE 27.3 mmol/L (21.0-32.0); CREATININE - SERUM 1.4 mg/dL (0.6-1.3); MAGNESIUM - SERUM 2.2 mg/dL (1.8-2.4); PROTEIN - SERUM 5.7 g/dL (6.4-8.2)
[2019-07-01 06:34] LABS: PHOSPHOROUS 4.2 mg/dL (2.5-4.9); POTASSIUM - SERUM 5.1 mmol/L (3.5-5.1)
[2019-07-01 06:36] LABS: MCV 91.8 fL (80.0-100.0)
--- NOTE | 2019-07-01 07:00 | NUR ---
SPOKE WITH DR. BELLAMY REPORTED ECG RHYTHMN CHANGE TO A FIB THIS AM. NEW ORDERS RECEIVED.
--- NOTE | 2019-07-01 08:58 | NUR ---
DR SHIPLEY AT BEDSIDE-STATUS REPORT GIVEN-NEOGTT TITRATED TO 15MCG/MIN-GOAL MEAN >70-DR SHIPLEY GIVEN NUMBER OF PT DAUGHTER-WHO REQUESTED A DR FITZGERALD
--- NOTE | 2019-07-01 09:41 | NUR ---
RECIEVED PHONE CALL FROM ANOTHER [id number] UPDATE OF DR SHIPLEY-DIRECTED SAME TO CHER-LISTED CONTACT-THAT DR SHIPLEY SPOKE WITH ON TELEPHONE TO GIVE CURRRENT UPDATE-AND COURSE OF ACTION-SHE RESPONDED DOESN'T TALK TO HER-NO NOTE ENTERED AT THIS TIME FROM DR SHIPLEY-GAVE GENERAL UPDATE-PLAN TO CONTINUE ADJUSTING OXYGEN TO 70% AND NO OTHER CHANGES AT THIS TIME-DAUGHTER BECAME UPSET NOT GIVEN MORE INFO-NURSE NOT PRESENT WHEN DR SHIPLEY SPOKE WITH OTHER SIBLING ON TELEPHONE AND NOT ABLE TO RELAY ANY FURTHER INFO -INCLUDING CXR AND LAB RESULTS-STRESSED TO OPEN COMMUNICATION WITH SIBLING-CASE MANAGEMENT CONSULT ORDERED TO SET UP FAMILY HIERARCHY OF LEGAL NEXT OF KIN FOR CONSENT MANAGEMENT AND DR TELEPHONE COMMUNICATIONS FOR UPDATE-ENCOURAGED DAUGHTER ON TELEPHONE TO BE PRESENT IN UNIT TO TALK WITH DAUGHTER-GAVE EST TIME [id number] DAY
--- NOTE | 2019-07-01 10:02 | NUR ---
DR STACY AT BEDSIDE-STATUS REPORT GIVEN-AND TELEPHONE NUMBER FOR DAUGHTER THAT EXPRESSED [id number] CALL UPDATE
--- NOTE | 2019-07-01 10:05 | NUR ---
HEART RATE 110-120-OMID DECREASED TO 8MCG
--- NOTE | 2019-07-01 10:20 | NUR ---
MARGOT MADE AWARE OF CURRENT SITUATION
[2019-07-01 14:38] LABS: APTT 28.8 SECONDS (22.8-39.4); INR 1.14 (0.85-1.17); PROTIME 14.6 SECONDS (11.6-15.0)
[2019-07-01 14:49] LABS: HEMOGLOBIN 8.3 g/dL (12-16); MCH 28.4 pg (26.0-34.0); MCHC 30.7 g/dL (31.0-37.0); MCV 92.5 fL (80.0-100.0); MEAN PLATELET VOLUME 10.4 fL (7.4-10.4); RBC 2.92 10x6/uL (4.00-5.40); RDW 16.3 % (11.5-14.5)
--- NOTE | 2019-07-01 16:08 | NUR ---
DECREASED FIO2 FROM 90 TO 85 @ 1400
--- NOTE | 2019-07-01 18:15 | NUR ---
1740-HR 110-120 AFIB TEMP 101.7-TYLENOL SUPP GIVEN ORDERED-BUTTOCK AND COCCYX SKIN INTACT
--- NOTE | 2019-07-01 19:00 | NUR ---
REPORT RECEIVED CARE ASSUMED ASSESSMENT DONE SEE FLOW SHEET VSS NO SIGNS OF ACUTE DISTRESS. ROOM FREED OF CLUTTER.
--- NOTE | 2019-07-01 20:05 | NUR ---
PTT 94. HEPARIN HELD FOR 30 MIN. DECREASED RATE 100. PER PROTOCOL.
--- NOTE | 2019-07-01 22:00 | NUR ---
GINA GARCIA MODULE CHANGED. TEMP SAME READING 101.5. ICE PACKS APPLIED.
--- NOTE | 2019-07-01 23:00 | NUR ---
REASSESSMENT DONE SEE FLOW SHEET VSS
[2019-07-02] VITALS (88 sets, daily range): BP systolic 100–144; BP diastolic 40–58
[2019-07-02 02:22] LABS: HEMATOCRIT 27.1 % (36.0-48.0); HEMOGLOBIN 8.4 g/dL (12-16); MCH 28.3 pg (26.0-34.0); MCV 91.2 fL (80.0-100.0); RBC 2.97 10x6/uL (4.00-5.40); RDW 16.1 % (11.5-14.5)
[2019-07-02 02:27] LABS: WBC 12.8 10x3/uL (4.8-10.8)
--- NOTE | 2019-07-02 03:00 | NUR ---
COMPLETE BED BATH GIVEN. LINEN CHANGE PROVIDED. SUBSTRNAL AND LUE DRESSING CHANGE. PT HR SINUS SIMI 58-59. WHEN COUGHING PT BRADYS TO MID 50S. TPM CONNECTED BUT TURNED OFF. ASSESSMENT DONE SEE FLOW SHEET VSS. NO SIGNS OF ACUTE DISTRESS NOTED WILL CONTINUE TO MONITOR.
[2019-07-02 03:09] LABS: ALBUMIN 1.7 g/dL (3.4-5.0); ANION GAP 11.3 mmol/L (8-16); BILIRUBIN - TOTAL 0.21 mg/dL (0.2-1.3); CALCIUM 8.2 mg/dL (8.5-10.1); CREATININE - SERUM 1.4 mg/dL (0.6-1.3); MAGNESIUM - SERUM 2.2 mg/dL (1.8-2.4)
[2019-07-02 03:11] LABS: POTASSIUM - SERUM 4.3 mmol/L (3.5-5.1)
--- NOTE | 2019-07-02 05:00 | NUR ---
DAILY WEIGHT COLLECTED. VSS WILL CONTINUE TO MONITOR.
--- NOTE | 2019-07-02 07:10 | NUR ---
SHIFT REPORT RECEIVED. PT CONTINUES ON VENT. A/C, R 20, TV 500, FIO2 85%, PEEP 8. ETT 8.0 22 AT LIP LINE. OGT TUBE IN PLACE WITH PULMOCARE AT 40ML/HR WITH 100ML H2O FLUSH Q 4HR. RIJ CVL WITH NS, AMIODARONE, PROPOFOL, OMID, INSULIN, AND HEPARIN INFUSING. SEE IV FLOWSHEET FOR RATES. PT SEDATED OPENS EYES TO VOICE. WRIST RESTRAINTS IN PLACE PER ORDERS. MIDSTERNAL INCISION WITH DRESSING C/D/I. SUBSTERNAL CT X 2 TO 20CM SUCTION, NO AIR LEAK NOTED. LEFT EDOUARD DRAIN IN PLACE, TPM WIRES CONNECTED BUT NOT ON. DRESSING C/D/I. DAIANA DRESSING C/D/I. RLE HARVEST SITES BAUTISTA. GARCIA CATH IN PLACE WITH LEANNA, CONCENTRATED URINE NOTED. REFUGIO'S AND SCD'S ON BILATERAL LE. AIR OVERLAY MATTRESS IN PLACE. SAFTETY MEASURES IN PLACE. NURSE AT BEDSIDE FOR CLOSE MONITORING. WILL CONTINUE TO MONITOR.
--- NOTE | 2019-07-02 08:50 | NUR ---
RESTING COMFORTABLY. DAUGHTER AT BEDSIDE. WILL CONTINUE TO MONITOR CLOSELY.
--- NOTE | 2019-07-02 10:03 | NUR ---
DR. GLEASON AT BEDSIDE.
--- NOTE | 2019-07-02 10:34 | NUR ---
WAITING ON APTT RESULTS TO COME BACK. LAB CALLED. WILL HAVE RESULTS SOON.
--- NOTE | 2019-07-02 11:11 | NUR ---
DR. PITTMAN AT BEDSIDE. FIO2 AT 80% AND PEEP 10.
--- NOTE | 2019-07-02 13:00 | NUR ---
VSS. REPOSITIONED FOR COMFORT. WILL CONTINUE TO MONITOR.
--- NOTE | 2019-07-02 13:10 | NUR ---
Nutrition Follow-up: Remains intubated. Tolerating TF. Diet: Pulmocare @ 40 H2O flushes 100 mL q 4 hrs Wt: 223.7# (07/02); 199# (06/29); 195# (06/26) Last BM: 07/01 Labs noted: Na 144, Glu 173, Alb 1.7 Meds noted: Solumedrol, NS @ KVO, Senokot, Diprivan, Humulin, Colace -Continue current diet as tolerated. -Monitor wt. -RD following.
--- NOTE | 2019-07-02 13:31 | NUR ---
TUBE FEEDING TUBING CHANGED AT THIS TIME.
--- NOTE | 2019-07-02 15:54 | NUR ---
AMIODARONE TO BE DC'D PER DR. BELLAMY.
--- NOTE | 2019-07-02 16:40 | NUR ---
DR. BELLAMY AT BEDSIDE. FIO2 TURNED DOWN TO 75%.
--- NOTE | 2019-07-02 19:00 | NUR ---
PT ASSESSMENT COMPLETED AT THIS TIME, NO CHANGES NOTED FROM NURSE REPORT, PT SEDATED AND ON VENT SUPPORT, VSS, AT THIS TIME, WILL MONITOR FOR CHANGES
--- NOTE | 2019-07-02 21:00 | NUR ---
PT REMAINS SEDATED ON VENT SUPPORT, VSS AT THIS TIME, NO CHANGES NOTED, WILL MONITOR FOR CHANGES
--- NOTE | 2019-07-02 23:00 | NUR ---
PT REASSESSMENT COMPLETED AT THIS TIME, NO CHANGES NOTED FROM PREVIOUS, PT SEDATED AND ON VENT SUPPORT, WILL MONITOR FOR CHANGES
[2019-07-03] VITALS (97 sets, daily range): BP systolic 101–153; BP diastolic 38–66
--- NOTE | 2019-07-03 01:00 | NUR ---
PT SEDATED ON VENT SUPPORT, NO CHANGES NOTED, VSS AT THIS TIME
--- NOTE | 2019-07-03 03:00 | NUR ---
PT REASSESSMENT COMPLETED AT THIS TIME, NO CHANGES FROM PREVIOUS, WILL MONITOR FOR CHANGES
--- NOTE | 2019-07-03 05:03 | NUR ---
PT GIVEN CHG BATH AT THIS TIME, NO CHANGES NOTED
[2019-07-03 06:16] LABS: BASOPHILS 0.1 % (0-2); EOSINOPHILS 0.1 % (0-7); HEMATOCRIT 27.6 % (36.0-48.0); HEMOGLOBIN 8.5 g/dL (12-16); IMMATURE GRANULOCYTES 1.4 % (0-5); LYMPHOCYTES 14.2 % (15-50); MCH 28.1 pg (26.0-34.0); MCHC 30.8 g/dL (31.0-37.0); MCV 91.4 fL (80.0-100.0); MONOCYTES 6.1 % (2-11); NEUTROPHILS 78.1 % (40-80); RBC 3.02 10x6/uL (4.00-5.40); RDW 16.4 % (11.5-14.5); WBC 12.1 10x3/uL (4.8-10.8)
[2019-07-03 06:25] LABS: PLATELET COUNT 304 10x3/uL (130-400)
[2019-07-03 06:43] LABS: INR 1.13 (0.85-1.17); PROTIME 14.4 SECONDS (11.6-15.0)
[2019-07-03 06:58] LABS: ALBUMIN 1.8 g/dL (3.4-5.0); ANION GAP 13.1 mmol/L (8-16); BILIRUBIN - TOTAL 0.21 mg/dL (0.2-1.3); C-REACTIVE PROTEIN 11.7 mg/dL (0.0-0.9); CALCIUM 8.7 mg/dL (8.5-10.1); CARBON DIOXIDE 25.3 mmol/L (21.0-32.0); CREATININE - SERUM 1.4 mg/dL (0.6-1.3); MAGNESIUM - SERUM 2.2 mg/dL (1.8-2.4); POTASSIUM - SERUM 4.4 mmol/L (3.5-5.1)
--- NOTE | 2019-07-03 07:00 | NUR ---
RECEIVED BEDSIDE REPORT ON PATIENT AND ASSUMED CARE. PATIENT SEDATED ON VENT, LOCALIZES PAIN, PUPILS AT 2 MM AND SLUGGISH, ETT 8.0, 21 CM AT TEETH, RIGHT IJ WITH DRESSING C/D/I, INFUSING, NS AT 10 ML/HR, INSULIN GTT AT 6.5 UNITS/HR, NEOSYNEPHRINE AT 10 MCGMIN, HEPARIN GTT AT 1600 UNITS/HR AND PROPOFOL AT 65 MCG/KG/MIN. TUBE FEEDING PULMOCARE AT 40 ML/HR WIHT 100 ML H2O FLUSHES Q 4 HRS PLACEMENT CHECK VIA ASCULTATION AND RESIDUAL CHECKED - 80 ML. SCDS AND REFUGIO HOSE IN PLACE. CM - SB RATE OF 56, BBS - CLEAR ON VENT, SETTINGS AC - 20, TV - 500, PEEP - 10, FIO2 - 70%, SPO2 - 95%. TEMP 99.3 PER GINA GARCIA WITH LEANNA CLEAR UOP NOTED. PATEINT TURNED AND REPOSITIONED IN BED.
--- NOTE | 2019-07-03 07:10 | NUR ---
PATIENT TURNED AND REPOSITIONED IN BED. VSS. FSBS - 173 NO CHANGES PER PROTOCOL ON INSULIN GTT. PTT - 39.4, GIVEN 3,000 UNIT PER HEPARIN PROTOCOL AND GTT INCREASED FROM 1600 UNITS/HR TO 1800 UNITS/HR PER PROTOCOL. REPEAT PTT ORDERED FOR 1330 TODAY.
--- NOTE | 2019-07-03 07:54 | NUR ---
RT DECREASED FIO2 TO 60% PER DR. BELLAMY, SPO2 - 93%.
--- NOTE | 2019-07-03 08:47 | NUR ---
PATIENTS DAUGHTER DARYA AT BEDSIDE, UPDATED AND QUESTIONS ANSWERED. MORNING MEDS GIVEN PER MAR. VSS. PROFOL TUBING CHANGED. PATIENT TURNED AND REPOSITIONED.
--- NOTE | 2019-07-03 09:37 | NUR ---
DR. GLEASON AT ROOM UPDATED AND EXAMINES PATIENT. NO NEW ORDERS AT THIS TIME. VSS.
--- NOTE | 2019-07-03 09:59 | NUR ---
DR. BELLAMY AT ROOM UPDATED AND EXAMINES PATIENT. TO HOLD PROPOFOL FOR NOW TO LET PATIENT WAKE UP. NOTIFIED OF SHORT RUN OF SVT THIS MORNING.
--- NOTE | 2019-07-03 10:15 | NUR ---
DR. BELLAMY AT ROOM D/C'S THE ANTERIOR CHEST TUBE POSTERIOR CT REMAINS, MIDSTERNAL DRESSING REMOVED, EDGES WELL APPROXIMATED TO LEAVE OPEN TO AIR. CT AND TPM WIRES, EDOUARD DRAIN REDRESSED WITH BETADINE OINTMENT, 4X4S AND TEGADERM. CT TO 20 CM SUCTION NO AIR LEAK DETECTED. 40 CC EMPTIED FROM EDOUARD DRAIN SEROUS.
--- NOTE | 2019-07-03 10:40 | NUR ---
PATEITN RESTLESS, COUGHING AGAINST VENT, HR 70'S WITH SHORT RUN OF SVT NOTED, RR 27, BP 145/59, PROPOFOL RESTARTED AT 30 MCG/KG/MIN. FIO2 DECREASED TO 56% PER DR. BELLAMY SPO2 92-93%.
--- NOTE | 2019-07-03 10:57 | NUR ---
REASSESSMENT COMPLETED. TUBE FEEDING AND TUBING CHANGED. PLACEMENT VERIFIED BY ASCULTATION. VSS. TURNED AND REPOSITIONED IN BED.
--- NOTE | 2019-07-03 11:23 | NUR ---
OMID GTT TURNED OFF BP 132/56 (81).
--- NOTE | 2019-07-03 11:41 | NUR ---
DR. PITTMAN AT ROOM UPDATED AND EXAMINES PATIENT. VENT SETTINGS ADJUSTED. TV 550, AC - 16, FIO2 - 55% AND PEEP 10. WANTS TO WAIT AND SEE RESULTS OF US BILATERAL LE'S PRIOR TO ORDERING CTA. PATIENT AWAKE, FOLLOWING COMMANDS, SYNCHRONOUS WITH VENT, WITH SEDATION AT 30 MCG/KG/MIN OF PROPOFOL. WILL CONTINUE TO MONITOR.
--- NOTE | 2019-07-03 12:05 | NUR ---
US TECH AT ROOM FOR US OF BILATERAL LE'S.
--- NOTE | 2019-07-03 12:30 | NUR ---
PATIENTS DAUGHTER DARYA AT ROOM UPDATED AND QUESTIONS ANSWERED.
--- NOTE | 2019-07-03 13:08 | NUR ---
PATIENT TURNED AND REPOSITIONED IN BED. VSS. DAUGHTER AT BEDSIDE. MEDS GIVEN PER MAR. IVF NS AND TUBING CHANGED.
--- NOTE | 2019-07-03 13:21 | NUR ---
PTT DRAWN AND SENT TO LAB.
--- NOTE | 2019-07-03 13:37 | NUR ---
PTT - 54.0, PER HEPARIN PROTOCOL INCREASED GTT BY 100 UNITS/HR, NOW AT 1900 UNITS/HR (19 ML/HR), REDRAW PTT AT 1930 HRS.
--- NOTE | 2019-07-03 14:03 | NUR ---
DR. BELLAMY AT ROOM UPDATED ON US OF BLE BEING NEGATIVE FOR PE, IF OKAY WITH DR. PITTMAN TO STOP HEPARIN GTT. DR. PITTMAN NOTIFIED TO STOP HEPARIN GTT AND GIVE LOVENOX 30 MG Q 12 HRS.
--- NOTE | 2019-07-03 15:14 | NUR ---
REASSESSMENT COMPLETED. PATIENT INCONTIENT MODERATE AMOUNT OF LIGHT BROWN SOFT/LOOSE STOOL, CLEANED, LINENS CHANGED AND REPOSTIONED IN BED. COCCYX REDDENED, BLANCHABLE. OGT PLACEMENT CHECKED VIA ASCULATION, RESIDUAL 20 CC. EDOUARD DRAIN EMPTIED 30 CC SEROUS FLUID. VSS.
--- NOTE | 2019-07-03 16:02 | NUR ---
FSBS - 141, PER PROTOCOL GTT HELD FOR 15 MINUTES AND FSBS TO BE RECHECKED.
--- NOTE | 2019-07-03 16:13 | NUR ---
PATIENTS DAUGHTER DARYA AT BEDSIDE, VSS. UPDATED NAD QUESTIONS ANSWERED. FSBS RECHECKED - 136. INSULIN GTT CONTINUES TO BE HELD.
--- NOTE | 2019-07-03 16:30 | NUR ---
FSBS - 148, INSULIN GTT CONTINUED TO BE HELD.
--- NOTE | 2019-07-03 16:40 | NUR ---
RT AT ROOM PATIENT SPO2 - 89-90%, FIO2 INCREASED TO 60%. GOAL IS SPO2 = OR > THAN 92%.
--- NOTE | 2019-07-03 17:01 | NUR ---
PATIENT TURNED AND REPOSITIONED IN BED. VSS. FSBS - 169, INSULIN GTT RESTARTED AT 4 UNITS/HR PER PROTOCOL.
[2019-07-03 17:08] LABS: ACID FAST SMEAR Negative (()); AFB SPECIMEN PROCESSING Concentration (())
--- NOTE | 2019-07-03 17:59 | NUR ---
PATIENT RESTLESS AND COUGHING ON THE VENT. SUCTIONED. PROPOFOL INCREASED TO 35 MCG/KG/MIN. VSS.
--- NOTE | 2019-07-03 21:04 | NUR ---
VAMSHI MITCHELL PAGER R/T MEDICATION CLOTRIMAZOLE ADMINISTRATION ORDERS
--- NOTE | 2019-07-03 21:10 | NUR ---
VAMSHI MITCHELL APRN, CALLED [facility] BACK, UPDATE GIVEN ON PT, INFORMED OF MEDICATION QUESTIONS & CONCERNS REGUARDING ADMINISTRATION, ORDERS RECEIVED TO D/C CLOTRIMAZOLE MEDICATION, ORDER NYSTATIN ORAL SUSPENSION Q.I.D WITH SPECIAL INSTRUCTIONS: 1. USE IN-BETWEEN ORAL CARE, 2. APPLY WITH ORAL SWAB, 3. SUCTION AFTER USE. PHARMACY CALLED AND INFORMED OF NEW ORDERS, NO FURTHER AT THIS TIME, WILL CONTINUE TO MONITOR
--- NOTE | 2019-07-03 23:00 | NUR ---
REASSESSMENT COMPLETE PER FLOW SHEET, NO ACUTE CHANGES FROM INITIAL ASSESSMENT, PT REPOSITIONED IN BED FOR COMFORT, NO ACUTE S/S OF DISTRESS NOTED, SINUS BRADYCARDIC ON CM WHEN RESTING, RETURNS TO NSR WHEN STIMULATED, ORAL CARE AND SUCTIONING COMPLETED, CALL LIGHT IN REACH, BED ALARM ON, WILL CONTINUE TO MONITOR
[2019-07-04] VITALS (57 sets, daily range): BP systolic 96–139; BP diastolic 35–91
--- NOTE | 2019-07-04 03:00 | NUR ---
REASSESSMENT COMPLETE PER FLOW SHEET, NO ACUTE CHANGES FROM PRIOR ASSESSMENT, SEDATED- FOLLOWS COMMANDS AND ABLE TO MOVE HEAD TO ANSWER QUESTIONS, NO ACUTE S/S OF DISTRESS NOTED, VSS, REPOSITIONED FOR COMFORT IN BED, ALL DRSG'S C/D/I, BED ALARM ON, ORAL CARE AND SUCTIONING COMPLETED, WILL CONTINUE TO MONITOR
[2019-07-04 05:54] LABS: BASOPHILS 0.1 % (0-2); EOSINOPHILS 0.5 % (0-7); IMMATURE GRANULOCYTES 1.7 % (0-5); LYMPHOCYTES 17.1 % (15-50); MCH 27.9 pg (26.0-34.0); MCHC 30.8 g/dL (31.0-37.0); MCV 90.6 fL (80.0-100.0); MEAN PLATELET VOLUME 10.1 fL (7.4-10.4); MONOCYTES 5.6 % (2-11); PLATELET COUNT 324 10x3/uL (130-400); RBC 2.87 10x6/uL (4.00-5.40); RDW 16.5 % (11.5-14.5); WBC 10.5 10x3/uL (4.8-10.8)
--- NOTE | 2019-07-04 06:00 | NUR ---
CHG BATH AND COMPLETE LINEN CHANGE COMPLETED, SUBSTERNAL DRSG CHANGED PER ORDERS, RT IJ CVL DRSG CHANGED PER PROTOCOL, ALL DRSG'S C/D/I, PT TOLLERATED DRSG CHANGES WITH NO S/S OF DISTRESS, REPOSITIONED PT IN BED FOR COMFORT, ALL EXTREMITIES ELEVATED ON PILLOWS, RESTRAINTS REPOSITIONED, HOB ELEVATED TO 30 DEGREES, CALL LIGHT IN REACH, BED ALARM ON, WILL CONTINUE TO MONITOR
[2019-07-04 06:06] LABS: ALBUMIN 1.8 g/dL (3.4-5.0); ANION GAP 10.7 mmol/L (8-16); BILIRUBIN - TOTAL 0.28 mg/dL (0.2-1.3); CALCIUM 8.4 mg/dL (8.5-10.1); CARBON DIOXIDE 26.5 mmol/L (21.0-32.0); CREATININE - SERUM 1.2 mg/dL (0.6-1.3); MAGNESIUM - SERUM 1.9 mg/dL (1.8-2.4); PHOSPHOROUS 3.3 mg/dL (2.5-4.9); POTASSIUM - SERUM 4.2 mmol/L (3.5-5.1); PROTEIN - SERUM 5.7 g/dL (6.4-8.2)
--- NOTE | 2019-07-04 07:00 | NUR ---
SHIFT REPORTS RECEIVED. CONTINUE ON VENT. A/C, RT 16, TV 550, PEEP 10. ETT 8.0 21 AT THE LIP MIDLINE. RIJ WITH PROPOFOL AT 40MCG/KG/MIN, NS AT 10ML/HR AND INSULIN AT 4UNITS/HR. MIDSTERNAL INCISION DRESSING C/D/I. SUBSTERNAL CT X 1 TO 20CM SUCTION. NO AIR LEAK NOTED. LEFT EDOUARD DRAIN IN PLACE WITH SEROUS DRAINAGE NOTED. TPM WIRES CONNECTED, NOT ON. DRESSING C/D/I. DAIANA DRESSING C/D/I. RLE HARVEST SITES BAUTISTA. REFUGIO'S AND SCD' IN PLACE. GARCIA CATHETER WITH CONCENTRATED URINE NOTED. HR 53, BRADYCARDIC. PT OPENS EYES AND FOLLOWS COMMANDS. SAFETY MEASURES IN PLACE. NURSE AT BEDSIDE FOR CLOSE MONITORING.
--- NOTE | 2019-07-04 07:00 | NUR ---
NOTIFIED OF MORNING LABS Hgb & Hct , NO NEW ORDERS RECEIVED.
--- NOTE | 2019-07-04 08:50 | NUR ---
DR. BELLAMY AT BEDSIDE. WANT PICC LINE PLACED. TPM AAI R 80 AMA 20 SENSITIVIY 0.5.
--- NOTE | 2019-07-04 09:50 | NUR ---
DR. GLEASON AT BEDSIDE. ADDRESSED GLUCOSE CONTROL AT THIS TIME. ORDERS RECEIVED.
[2019-07-04 11:10] LABS: FUNGUS STAIN Final report (())
--- NOTE | 2019-07-04 11:29 | NUR ---
VASCULAR ACCESS NURSE AT BEDSIDE FOR PICC LINE PLACEMENT.
--- NOTE | 2019-07-04 11:49 | NUR ---
DR. PITTMAN AT BEDSIDE. WANTS SPUTUM SAMPLE FROM ETT.
--- NOTE | 2019-07-04 12:32 | NUR ---
DR. PITTMAN SPOKE WITH FAMILY AT THIS TIME.
--- NOTE | 2019-07-04 13:16 | NUR ---
PT RESTING COMFORTABLY. NO FAMILY AT BEDSIDE. NASTATIN APPLIED TO MOUTH PER ORDERS. WILL CONTINUE TO MONITOR.
--- NOTE | 2019-07-04 14:32 | NUR ---
Nutrition Follow-up: Remains intubated. Tolerating TF @ goal rate. RN reports that MD concerned about Glu and discussed possibility of switching to diabetic formula. Pulmocare provides less carbohydrates than available diabetic formulas. Diet: Pulmocare @ 40 mL/hr H2O flushes 100 mL q 4 hrs Wt: 223.7# (07/04); 223.7# (07/02) Last BM: 07/04 Labs noted: Glu 168, Alb 1.8 Meds noted: Solumedrol, NS @ KVO, Senokot, Diprivan, Humulin, Colace -Continue current TF as tolerated. -RD following.
--- NOTE | 2019-07-04 14:40 | NUR ---
FLUIDS CHANGE TO PICC LINE. NEW IV TUBING USED. CVL DC'D PER ORDERS. PT TOLERATED WELL. WILL CONTINUE TO MONITOR.
--- NOTE | 2019-07-04 15:29 | NUR ---
MODERATE AMOUNT OF SOFT BROWN STOOL NOTED. PERICARE AND GARCIA CARE PROVIDED. PREVIOUS CVL INSERTION DRESSING REINFORCED WITH 4X4S AND TAGEDERM.
--- NOTE | 2019-07-04 17:50 | NUR ---
MODERATE AMOUNT OF SOFT STOOL. PERICARE AND GARCIA CARE PROVIDED. PARTIAL LINEN CHANGE PROVIDED. REPOSITIONED FOR COMFORT. NO FURTHER NEEDS. WILL CONTINUE TO MONITOR.
--- NOTE | 2019-07-04 19:00 | NUR ---
REPORT RECEIVED FROM DAY SHIFT RN, INITIAL ASSESSMENT COMPLETE PER FLOW SHEET, PT CONTINUES ON VENT PER ORDERS, A/C RATE 16 TV 550 PEEP10, ETT 8.0 21 AT LIP LINE RIGHT, ORAL CARE AND SUCTIONING COMPLETED, PT OPENS EYES AND FOLLOWS COMMANDS ABLE TO ANSWER YES/NO QUESTIONS WITH HEAD MOVEMENT, RIGHT UPPER ARM PICC LINE PATENTDRSG C/D/I, INFUSING NS @10ML/HR & PROPOFOL @35 ML/HR, MIDSTERNAL INCISION WELL APPROXIMATED C/D/I PSYCHOLOGIST DEVELOPMENTAL, SUBSTERNAL CTx1 CTA Y'd TOGETHER TO SINGLE TUBE, TO 20cm SUCTION, NO AIR LEAK NOTED, EDOUARD DRAIN COMPRESSED, SEROUS FLUID NOTED IN CT & EDOUARD, TPM WIRES x2 CONNECTED TO EXTERNAL PACEMAKER AAI RATE 80 AMA 20 SENSETIVITY 0.5, SUBSTERNAL DRSG C/D/I, LUE HARVEST SITE DRSG C/D/I, RLE HAVEST SITES WELL APPROXIMATED C/D/I BAUTISTA, REFUGIO JORDAN AND SCD'S ON BLE, CRITICORE GARCIA CATH WITH YELLOW URINE NOTED, PACED RHYTHM ON CM @79bpm, ALL OTHER VSS, CALL LIGHT PLACED IN PT HAND AND REVIEWED WITH PT, BED ALARM ON, NURSE AT BEDSIDE FOR CLOSE 1:1 MONITORING, REPOSITIONED FOR COMFORT, WILL CONTINUE TO MONITOR
--- NOTE | 2019-07-04 19:50 | NUR ---
PAGED R/T ORDERS FOR CTA IMAGING ORDERS
--- NOTE | 2019-07-04 22:08 | NUR ---
PAGED #2 R/T CTA ORDERS.
--- NOTE | 2019-07-04 22:14 | NUR ---
RETURNED PAGE, UPDATE GIVEN ON PT, DISCUSSED WITH ABOUT CTA IMAGING ORDER TO BE COMPLETED, INFORMED TATTOO DESIGNERBURTON Mccoy ASKED 'CAN CTA ORDER BE DONE IN THE MORNING D/T STAFFING." STATED "CTA CAN BE DONE IN THE MORNING, BUT NEEDS TO BE FIRST THING IN THE MORNING." TATTOO DESIGNERBURTON Mccoy NOTIFIED.
--- NOTE | 2019-07-04 22:40 | NUR ---
RADHA WITH RADIOLOGY CALLED AND NOTIFIED OF CTA ORDERS TO BE DONE IN MORNING (07/05/2019) EARLY POSSIBLE.
--- NOTE | 2019-07-04 23:00 | NUR ---
REASSESSMENT COMPLETE PER FLOW SHEET, NO ACUTE CHANGES FROM PRIOR ASSESSMENT, PT REPOSITIONED IN BED FOR COMFORT, HOB ELEVATED 30 DEGREES, MIDSTERNAL INCISION WELL APPROXIMATED C/D/I APPLICATION COUNSELOR, SUBSTERNAL CTx1 CTA Y'd TOGETHER TO SINGLE TUBE TO 20cm SUCTION, NO AIR LEAK, EDOUARD DRAIN COMPRESSED, TPM WIRES x2 SECURED AND CONNECTED TO EXTERNAL PACEMAKER, DRSG C/D/I, PACED RHYTHM ON CM @ 79bpm, ALL OTHER VSS, VENT SETTINGS CHANGED PER DEMI RT PER ORDERS, PT TOLLERATING WELL, ORAL CARE AND SUCTIONING COMPLETED, PT AWAKE AND FOLLOWS COMMANDS ABLE TO MOVE HEAD TO ANSWER YES/NO QUESTIONS, ROM COMPLETED ON ALL EXTREMITIES, RESTRAINTS REPOSITIONED SKIN ASSESSED, PILLOWS PLACED UNDER ALL EXTREMITIES, REFUGIO HOSE AND SCD'S ON BLE, CALL LIGHT PLACED IN PT HAND WITH TEACHING COMPLETED, BED ALARM ON, WILL CONTINUE TO MONITOR
[2019-07-05] VITALS (37 sets, daily range): BP systolic 103–145; BP diastolic 36–61
--- NOTE | 2019-07-05 01:00 | NUR ---
PT RESTING COMFORTABLY, NO ACUTE S/S OF DISTRESS NOTED, PACED RHYTHM ON CM, OTHER VSS, REPOSITIONED FOR COMFORT, ALL DRSG'S C/D/I, CALL LIGHT IN PT HAND, WILL CONTINUE TO MONITOR
--- NOTE | 2019-07-05 03:00 | NUR ---
REASSESSMENT COMPLETE PER FLOW SHEET, NO ACUTE CHANGES FROM PRIOR ASSESSMENT, PT OPENS EYES AND FOLLOWS COMMANDS ABLE TO ANSWER YES/NO QUESTIONS WITH HEAD MOVEMENT, REPOSITIONED FOR COMFORT, ORAL CARE AND SUCTIONING COMPLETED, VENT SETTINGS PER ORDERS, ETT@ 21 LIP LINE MIDDLE, OGT TF PULMOCARE 40ML/HR WITH q4HR 100ML H2O FLUSH, RT UPPER ARM PICC LINE PATENT DRSG C/D/I, MIDSTERNAL INCISION WELL APPROXIMATED C/D/I GLASS MAKER, SUBSTERNAL CTx1 CTA Y'd TOGETHER TO SINGLE TUBE TO 20cm SUCTION, NO AIR LEAK NOTED, EDOUARD DRAIN COMPRESSED, TPM WIRES x2 CONNECTED TO EXTERNAL PACEMAKER, PACEMAKER ON AAI RATE 80 AMA 20 SENSETIVITY 0.5, PACED RHYTHM @79bpm ON CM, OTHER VSS, DAIANA HARVEST SITE DRSG C/D/I, RLE HARVEST SITES WELL APPROXIMATED C/D/I BAUTISTA, CRITICORE GARCIA DRAINING YELLOW URINE, GARCIA CARE COMPLETED, REFUGIO JORDAN AND SCD'S ON BLE, CALL LIGHT PLACED IN PT HAND AND REVIEWED TEACHING ON USE WITH PT, WILL CONTINUE TO MONITOR
[2019-07-05 05:50] LABS: HEMATOCRIT 25.7 % (36.0-48.0); HEMOGLOBIN 7.9 g/dL (12-16); MCH 28.2 pg (26.0-34.0); MCHC 30.7 g/dL (31.0-37.0); MCV 91.8 fL (80.0-100.0); MEAN PLATELET VOLUME 9.7 fL (7.4-10.4); RBC 2.8 10x6/uL (4.00-5.40); RDW 16.5 % (11.5-14.5); WBC 10.4 10x3/uL (4.8-10.8)
[2019-07-05 06:30] LABS: ALBUMIN 1.9 g/dL (3.4-5.0); ANION GAP 11.6 mmol/L (8-16); BILIRUBIN - TOTAL 0.26 mg/dL (0.2-1.3); CALCIUM 8.3 mg/dL (8.5-10.1); CARBON DIOXIDE 26.7 mmol/L (21.0-32.0); POTASSIUM - SERUM 4.3 mmol/L (3.5-5.1); PROTEIN - SERUM 5.6 g/dL (6.4-8.2)
--- NOTE | 2019-07-05 06:30 | NUR ---
CHG BATH AND COMPLETE LINEN CHANGE COMPLETED, LEFT UPPER ARM DRSG CHANGED, SUTURES AND INCISION INTACT, 2x2 GAUZE AND BORDERED GAUZE DRSG, PT REPOSITIONED IN BED FOR COMFORT ON LEFT SIDE SUPPORTED WITH PILLOW UNDER RIGHT BACK, ALL TUBES AND LINES REPOSITIONED, CALL LIGHT PLACED IN PT HAND AND REVIEWED USE, VSS WITH PACED RHYTHM ON CM @ 79bpm, WILL CONTINUE TO MONITOR
--- NOTE | 2019-07-05 08:30 | NUR ---
TO RADIOLOGY VIA BED FOR CTA. RT,RM, AND RAD STAFF ASSISTING.
--- NOTE | 2019-07-05 08:40 | NUR ---
BACK INTO ROOM. TOLERATED THE CTA AND TRANSPORT WELL. FAMILY AT BEDSIDE.
--- NOTE | 2019-07-05 11:10 | NUR ---
DR BELLAMY AT BEDSIDE. NO CHANGES AT THIS TIME.
--- NOTE | 2019-07-05 11:35 | NUR ---
CALLED DR PITTMAN PER DR GRIMALDO REQUEST TO ASK IF WE COULD WEAN THE PEEP ANY. HE SAID HE WOULD RATHER WEAN THE P02 FIRST. HE CAME TO BEDSIDE AND WEANED THE PO2 TO 50%.
--- NOTE | 2019-07-05 13:00 | NUR ---
REQUIRES FREQUENT ORAL SUCTIONING. AWAKE, CALM AND COOPERATIVE.
--- NOTE | 2019-07-05 15:30 | NUR ---
NO CHANGES IN ASSESSMENT. DENIES NEEDS OR PAIN. TURNING FREQUENTLY. TOLERATES WELL.
--- NOTE | 2019-07-05 16:30 | NUR ---
DAUGHTER AT BEDSIDE. UPDATE GIVEN.
[2019-07-05 17:08] LABS: FUNGUS MYCOLOGY CULTURE Preliminary report (())
--- NOTE | 2019-07-05 20:30 | NUR ---
LARGE BM BROWN LOOSE STOOL NOTED, PERICARE AND PARTIAL BATH COMPLETED, GARCIA CARE COMPLETED, PT REPOSITIONED WITH NO S/S OF ACUTE DISTRESS, VSS, COMPLETE LINEN AND GOWN CHANGED, REPOSITIONED IN BED FOR COMFORT, CALL LIGHT IN HAND AND REVIEWED USE WITH PT, REFUGIO JORDAN AND SCD'S ON BLE, BED ALARM ON, WILL CONTINUE TO MONITOR
--- NOTE | 2019-07-05 21:00 | NUR ---
MEDS GIVEN PER MAR/ORDERS, PT TOLLERATED WELL, NO ACUTE DISTRESS NOTED, VSS, REPOSITIONED FOR COMFORT, ORAL CARE AND SUCTIONING COMPLETED, WILL CONTINUE TO MONITOR
--- NOTE | 2019-07-05 21:55 | NUR ---
[facility], PASSWORD VERIFIED, UPDATE GIVEN AND QUESTIONS ANSWERED, DAUGHTER STATED "I'M HAPPY WITH IMPROVEMENT." SPEAKING WITH JOYFULL/HAPPY TONE OF VOICE, DENIES FURTHER NEEDS AT THIS TIME
--- NOTE | 2019-07-05 22:00 | NUR ---
PT AWAKE CALM AND COOPERATIVE, COUGHING FROM ORAL SECRETIONS, REQUIRES FREQUENT ORAL SUCTIONING, VSS, PT ABLE TO RELAX AFTER SUCTIONING AND REST WITH EYES CLOSED WITH NO S/S OF DISTRESS NOTED, WILL CONTINUE TO MONITOR
--- NOTE | 2019-07-05 22:45 | NUR ---
FiO2% DECREASED TO 45% ON VENT BY RT DEMI PT TOLLERATING WELL SPO2 96%, OTHER VSS, WILL CONTINUE TO MONITOR
--- NOTE | 2019-07-05 23:00 | NUR ---
REASSESSMENT COMPLETE PER FLOW SHEET, NO ACUTE CHANGES FROM PRIOR ASSESSMENT, PT RESTING COMFORTABLY WITH EYES CLOSED, AWAKE AND ALERT WHEN RN ENTERS ROOM, REPOSITIONED IN BED FOR COMFORT, ORAL CARE AND SUCTIONING COMPLETED, ALL DRSG'S C/D/I, INCISION SITES C/D/I WELL APPROXIMATED, CT TO 20cm SUCTION NO AIR LEAKS, EDOUARD DRAIN COMPRESSED, TPM WIRES x2 CONNECTED TO EXTERNAL PACEMAKER, CRITICORE GARCIA PATENT WITH YELLOW URINE, REFUGIO HOSE AND SCD'S ON BLE, PACED RHYTHM @ 79-80bpm ON CM, OTHER VSS, CALL LIGHT PLACED IN PT HAND AND REVIEWED USE, BED ALARM ON, WILL CONTINUE TO MONITOR
--- NOTE | 2019-07-05 23:15 | NUR ---
LARGE BM NOTED SOFT SEMIFORMED BROWN, PARTIAL BATH GIVEN WITH GARCIA CARE COMPLETED, COMPLETE LINEN CHANGE, PT TOLLERATED REPOSITIONING, VSS, PT AWAKE AND ALERT, REPOSITIONED IN BED FOR COMFORT, HOB ELEVATED 30 DEGREES, CALL LIGHT PLACED IN PT HAND, NO FURTHER NEEDS AT THIS TIME WILL CONTINUE TO MONITOR
[2019-07-06] VITALS (31 sets, daily range): BP systolic 117–161; BP diastolic 40–73
--- NOTE | 2019-07-06 00:45 | NUR ---
FiO2 DECREASED TO 40% FiO2 BY RESPIRATORY DEMI, SpO2 97%, OTHER VSS, PT TOLLERATING WELL, WILL CONTINUE TO MONITOR
--- NOTE | 2019-07-06 03:00 | NUR ---
REASSESSMENT COMPLETE PER FLOW SHEET, NO ACUTE CHANGES FROM PRIOR ASSESSMENT, PT AWAKE AND ALERT, REPOSITIONED FOR COMFORT, HOB ELEVATED 30 DEGREES, ALL DRSG'S C/D/I, OGT TF LINE CHANGED, EXTERNAL PACEMAKER BATTERY CHANGED PER ORDERS, PT TOLLERATED WELL WITH NO S/S OF DISTRESS, VSS, ORAL CARE AND SUCTIONING COMPLETED, GARCIA CARE PROVIDED, CALL LIGHT IN HAND, WILL CONTINUE TO MONITOR
--- NOTE | 2019-07-06 05:45 | NUR ---
LARGE BROWN STOOL SEMIFORMED SOFT NOTED, RAKESH CARE AND PARTIAL BATH GIVEN, NEW LINEN PLACED, PT TOLLERATED MOVEMENT, VSS, REPOSITIONED FOR COMFORT, WILL CONTINUE TO MONITOR
[2019-07-06 05:51] LABS: HEMATOCRIT 26.1 % (36.0-48.0); HEMOGLOBIN 8.1 g/dL (12-16); MCH 28.3 pg (26.0-34.0); MCV 91.3 fL (80.0-100.0); MEAN PLATELET VOLUME 9.3 fL (7.4-10.4); RBC 2.86 10x6/uL (4.00-5.40); RDW 16.6 % (11.5-14.5); WBC 12.2 10x3/uL (4.8-10.8)
[2019-07-06 05:57] LABS: BILIRUBIN - TOTAL 0.19 mg/dL (0.2-1.3); CALCIUM 8.4 mg/dL (8.5-10.1); CARBON DIOXIDE 26.8 mmol/L (21.0-32.0); PROTEIN - SERUM 5.8 g/dL (6.4-8.2)
[2019-07-06 05:58] LABS: ANION GAP 11.8 mmol/L (8-16); POTASSIUM - SERUM 3.6 mmol/L (3.5-5.1)
--- NOTE | 2019-07-06 06:00 | NUR ---
CHG BATH AND LINEN CHANGE, GOWN REPLACED, RESTRAINTS REMOVED TO COMPLETE ROM, TEACHING PROVIDED TO NOT PULL AT TUBES, PT GESTURES WITH HEAD NOD THAT SHE UNDERSTANDS TEACHING, WILL CONTINUE TO MONITOR
--- NOTE | 2019-07-06 07:15 | NUR ---
RESTRAINTS REPOSITIONED BACK ON PT PER ORDERS AFTER ROM COMPLETED.
--- NOTE | 2019-07-06 07:54 | NUR ---
0730-RECIEVED AWAKE AND ALERT-WATCHING TELEVISION-NODDED YES WHEN ASKED IF NEEDS RESTRAINT ON TO PREVENT UNINTENTIONAL ENDOTRACHEAL REMOVAL-RESP RX COMPLETED-SUCTIONED FOR LARGE AMOUNT THICK YELLOW TINGED MUCUS-COPIOUS CLR ORAL SECRETIONS
--- NOTE | 2019-07-06 09:44 | NUR ---
SPOKE WITH THREE DAUGHTERS REGARDING CURRENT STATUS
--- NOTE | 2019-07-06 10:59 | NUR ---
INCONTINENT OF LARGE LIQUID STOOL-SKIN CARE DONE WITH SKIN OINTMENT APPLIED SUCTIONED ET TUBE FOR COPIOUS AMOUNT OF THINK WHITE MUCUS
--- NOTE | 2019-07-06 13:07 | NUR ---
Nutrition Follow-up: Remains intubated. Tolerating TF at goal rate. Diet: Pulmocare - goal rate of 40 mL/hr H2O flushes 100 mL q 4 hrs Wt: 212.7# (07/06); 223.7# (07/04); 195# (06/26) Last BM: 07/06 Labs noted: Glu 205, Ca 8.4, Alb 2.0 Meds noted: Solumedrol, Lantus, Humulin, NS @ KVO -Continue current TF as tolerated. -Monitor wt. -RD following.
--- NOTE | 2019-07-06 13:29 | NUR ---
1230-[facility] AT BEDSIDE-MEDIASTINAL CHEST TUBES D/C BY SAME DIRECTED BY DR RUIZ-PER PROTOCOL-TOLERATED WELL BY PT-PACER WIRE DRGS CHANGED-EDOUARD DRG CHANGED-COMPRESSED FOR SUCTION-SEROUS DRAINAGE CHANGED TO CPAP PER DR PITTMAN-ALBARO TURNED OFF-DAUGHTERS AT [facility]-ENCOURAGED TO KEEP PT CALM WITH LITTLE TALKING EFFORT- 1330-PT STATED COULDN'T BREATH-RR 22 O2SAT 97%-ATTEMPTING TO SIT UP -CHANGED TO A/C BY RT-VISIBLY CALMED PT -ALBARO LEFT OFF RR 18 SAT 97%-REPOSITIONED TO L SIDE
--- NOTE | 2019-07-06 14:46 | NUR ---
ASSISTED WITH TV CONTROL-TOLERATING 2ND TRIAL RUN OF CPAP
--- NOTE | 2019-07-06 15:30 | NUR ---
CPAP TRIAL IN PROGRESS
--- NOTE | 2019-07-06 18:24 | NUR ---
1600-RETURNED A/C -TOLERATED WELL 1700-REPOSITIONED TO R SIDE
--- NOTE | 2019-07-06 19:00 | NUR ---
REPORT RECEIVED AND CARE ASSUMED. RECEIVED PATIENT IN BED AWAKE ALERT AND ORIENTED. NONVERBAL DUE TO ETT. ETT INTACT/SECURE/PATENT CONNECTED TO MECHANICAL VENT AT ORDERED SETTINGS . MONITORS CONNECTED TO PATIENT WITH ALARMS SET. VSS. ATRIALY PACED ON MONITOR 79 BPM. CALL LIGHT IN REACH AND ABLE TO UTILIZE TO MAKE NEEDS KNOWN. ASSESSMENT COMPLETED PER FLOW SHEET WITH NO ACUTE DISTRESS OBSERVED.
--- NOTE | 2019-07-06 21:00 | NUR ---
AWAKE AND ALERT. VSS. ETT INTACT/SECURE/PATENT CONNECTED TO MECH VENT AT ORDERED SETTINGS.
--- NOTE | 2019-07-06 23:00 | NUR ---
REASSESSMENT COMPLETED PER FLOW SHEET WITH NO ACUTE DISTRESS OBSERVED. VSS. ETT INTACT/SECURE/PATENT CONNECTED TO ME[facility] AT ORDERED SETTINGS. TURNED AND REPOSITIONED FOR COMFORT. CALL LIGHT IN REACH
[2019-07-07] VITALS (26 sets, daily range): BP systolic 84–157; BP diastolic 42–68
--- NOTE | 2019-07-07 01:00 | NUR ---
RESTING WITH EYES CLOSED, EASILY ROUSED AND ALERT. VSS
--- NOTE | 2019-07-07 03:00 | NUR ---
REASSESSMENT COMPLETED PER FLOW SHEET WITH NO ACUTE DISTRESS OBSERVED. VSS. CALL LIGHT IN REACH
--- NOTE | 2019-07-07 04:00 | NUR ---
PATIENT WITH LARGE LOOSE INCONT BM. RAKESH/FC CARE GIVEN. CHG BATH AND COMPLETE LINEN CHANGE GIVEN. SUBSTERNAL AND LUE DRSG CHANGED. PATIENT MAYRA WELL. VSS
--- NOTE | 2019-07-07 05:00 | NUR ---
AWAKE AND ALERT. VSS. ETT INTACT/SECURE/PATENT CONNECTED TO [facility] AT ORDERED SETTINGS. CALL LIGHT IN REACH
[2019-07-07 05:58] LABS: BASOPHILS 0.2 % (0-2); EOSINOPHILS 0.9 % (0-7); HEMATOCRIT 24.8 % (36.0-48.0); LYMPHOCYTES 18.9 % (15-50); MCH 27.6 pg (26.0-34.0); MCHC 30.2 g/dL (31.0-37.0); MCV 91.2 fL (80.0-100.0); MONOCYTES 6.2 % (2-11); NEUTROPHILS 71.8 % (40-80); PLATELET COUNT 394 10x3/uL (130-400); RBC 2.72 10x6/uL (4.00-5.40); RDW 16.6 % (11.5-14.5); WBC 12.2 10x3/uL (4.8-10.8)
[2019-07-07 06:18] LABS: HEMOGLOBIN 7.5 g/dL (12-16)
[2019-07-07 06:32] LABS: ALBUMIN 1.9 g/dL (3.4-5.0); ANION GAP 10.4 mmol/L (8-16); BILIRUBIN - TOTAL 0.18 mg/dL (0.2-1.3); CALCIUM 7.9 mg/dL (8.5-10.1); CARBON DIOXIDE 25.9 mmol/L (21.0-32.0); CREATININE - SERUM 0.9 mg/dL (0.6-1.3); POTASSIUM - SERUM 3.3 mmol/L (3.5-5.1); PROTEIN - SERUM 5.4 g/dL (6.4-8.2)
--- NOTE | 2019-07-07 08:18 | NUR ---
RT AT [facility]-CHANGED TO CPAP PS 12-40/8-PT ALERT AND EASILY FOLLOWING ALL DIRECTIONS
--- NOTE | 2019-07-07 13:55 | NUR ---
1215-DR [place] AT BEDSIDE STATUS REPORT-ORDER RECIEVED AND NOTED-RT ATBEDSIDE-PT EXTUBATED ORDERED-PLACED ON 4L-DR RUIZ RETURNED CALL CONFIRMED PRBC ORDER AND RECIEVED ORDER FOR LASIX AND ADDITIONAL PRBC 1330-PHYSICAL THERAPY AT BEDSIDE-ASSISTED PT TO SIDE OF BED-AND STOOD WITH WALKER-FIDEL 1345 RT AT BEDSIDE PT TEACHING IN PROGRESS FOR IS AND FLUTTER AND UPDRAFT
--- NOTE | 2019-07-07 16:11 | NUR ---
DAUGHTERS AT BEDSIDE SHAMPOOING PT HAIR
--- NOTE | 2019-07-07 19:00 | NUR ---
REPORT RECEIVED. RECEIVED PATIENT IN BED, AWAKE ALERT AND ORIENTED X 4. SPEECH SOFT/CLEAR. ASSESSMENT COMPLETED PER FLOW SHEET WITH NO ACUTE DISTRESS OBSERVED. MONITORS CONNECTED TO PATIENT WITH ALARMS SET. VSS
--- NOTE | 2019-07-07 21:00 | NUR ---
AWAKE AND ALERT. PM MEDS TAKEN WITHOUT DIFF. TAKING PO THICKENED LIQUIDS WELL. VSS. CALL LIGHT IN REACH
--- NOTE | 2019-07-07 23:00 | NUR ---
02 SAT 88-89% ON 02 4L/MIN PER NC. IS USED. INSTRUCTED TO DEEP BREATH AND COUGH WITH NO EFFECT ON O2 SAT. LUNGS SOUNDS CTA. PLACED ON HIGH FLOW NC @5L/MIN. 02 SAT UP TO 93%. REASSESSMENT COMPLETED PER FLOW SHEET. CALL LIGHT IN REACH AND ABLE TO UTILIZE TO MAKE NEEDS KNOWN.
[2019-07-08] VITALS (23 sets, daily range): BP systolic 130–191; BP diastolic 52–122
--- NOTE | 2019-07-08 01:00 | NUR ---
RESTING WITH EYES CLOSED, EASILY ROUSED AND ALERT. CONTINUES ON 02@ 2L/MIN PER HIGH FLOW NC WITH 02 SATS MAINTIAING 91-92% RESP WITH EASE. VSS
--- NOTE | 2019-07-08 03:00 | NUR ---
REASSESSMENT COMPLETED PER FLOW SHEET. REQUESTING BEDPAN AT THIS TIME. ASSISTED PATIENT ONTO BEDPAN. CALL LIGHT IN REACH
--- NOTE | 2019-07-08 03:15 | NUR ---
PATIENT 02 SATS 87-88% ON 5L/MIN PER HIGH FLOW NC. IS COMPLAINING OF SOME SOB. IS USED. INSTRUCTED TO DEEP BREATHE AND COUGH, DID SO WITH GOOD EFFORT AND NO EFFECT ON 02 SAT. RT NOTIFIED.
--- NOTE | 2019-07-08 03:43 | NUR ---
PATIENT COMPLETED SCHEDULED UPDRAFT AND CONTINUES TO HAVE SOME SOB. PATIENT PLACED ON BIPAP PER RT PER PRN ORDER AT THIS TIME AND MAYRA WELL. 02 SAT 93% ON 40% FIO2. RESP EVEN AND UNLABORED. CALL LIGHT IN REACH AND ABLE TO UTILIZE TO MAKE NEEDS KNOWN
--- NOTE | 2019-07-08 03:53 | NUR ---
ASSISTED OFF OF BEDPAN WITH NO BM. REPOSITIONED FOR COMFORT. MAYRA BIPAP WELL. CALL LIGHT IN REACH
--- NOTE | 2019-07-08 05:00 | NUR ---
TOLERATING BIPAP WELL. NO COMPLAINT OF FURTHER SOB. VSS
[2019-07-08 06:26] LABS: CALC OSMOLALITY 290 mosm/kg (275-300); CALCIUM 8.3 mg/dL (8.5-10.1); CARBON DIOXIDE 27.2 mmol/L (21.0-32.0); CHLORIDE - SERUM 108 mmol/L (98-107); CREATININE - SERUM 0.8 mg/dL (0.6-1.3); GLUCOSE 155 mg/dL (74-106); POTASSIUM - SERUM 3.3 mmol/L (3.5-5.1); SODIUM 142 mmol/L (136-145); UREA NITROGEN 27 mg/dL (7-18); eGFR NON AFRICAN AMERICAN 78 mL/min (90-120)
[2019-07-08 06:27] LABS: BASOPHILS 0.1 % (0-2); EOSINOPHILS 0.8 % (0-7); IMMATURE GRANULOCYTES 1.9 % (0-5); LYMPHOCYTES 15.5 % (15-50); MCH 28.3 pg (26.0-34.0); MCHC 31.9 g/dL (31.0-37.0); MEAN PLATELET VOLUME 9.1 fL (7.4-10.4); MONOCYTES 4.1 % (2-11); NEUTROPHILS 77.6 % (40-80); PLATELET COUNT 337 10x3/uL (130-400); RDW 17.7 % (11.5-14.5); WBC 14.3 10x3/uL (4.8-10.8)
[2019-07-08 06:32] LABS: HEMATOCRIT 42.6 % (36.0-48.0); HEMOGLOBIN 13.6 g/dL (12-16); MCV 88.6 fL (80.0-100.0); RBC 4.81 10x6/uL (4.00-5.40)
--- NOTE | 2019-07-08 07:00 | NUR ---
ASSISTED INTO BEDSIDE CHAIR X 2 RNS. MAYRA WELL. VSChantale.
--- NOTE | 2019-07-08 10:46 | NUR ---
0700-ASSISTED TO BEDSIDE CHAIR -REQUIRED 50% ASSIST-ALERT AND VERBALLY APPROPRIATE 0845-DAUGHTER AT BEDSDIE -DISCUSSING WITH PT LIVING ARRANGEMENTS ON DISCHARGE-NOTED PT NIBP INCREASED TO 191 SYS-REQUESTED DAUGHTER TO CHANGE SUBJECT AT THIS TIME-PT NODDED IN AGREEMENT 0920-AMBULATED IN HALLWAY TO WHEELCHAIR-PORT TELEMETRY/PACER/O2 IN PL[address]-BROUGHT PT TO WAITING ROOM TO VISIT WITH SMALL CHILDREN [id number] WELL-RETURNED TO ROOM-NIBP PLACED TO R FOREARM-184/59-DISCOURAGED ANY FURTHER STRONG ACTIVITY UNTIL BP ADDRESSED WITH DR STACY
--- NOTE | 2019-07-08 16:58 | NUR ---
DAUGHTER AT BEDSIDE WITH PT
--- NOTE | 2019-07-08 19:00 | NUR ---
REPORT RECEIVED, SHIFT ASSESSMENT COMPLETE PER FOW SHEET, PT AWAKE AND ALERT SMILING WATCHING TV, DENIES PAIN OR NEEDS AT THIS TIME, ALL DRSG'S C/D/I, REPOSITIONED IN BED FOR COMFORT,REFUGIO JORDAN AND SCD'S ON BLE, CALL LIGHT IN REACH, BED ALARM ON, WILL CONTINUE TO MONITOR
--- NOTE | 2019-07-08 22:30 | NUR ---
PT INCONTINENT OF BOWEL AND BLADDER, LARGE BROWN LOOSE STOOL NOTED, PARTIAL BED BATH AND LINEN CHANGE COMPLETED, REPOSITIONED PT IN BED FOR COMFORT, DENIES PAIN OR NEEDS AT THIS TIME, WILL CONTINUE TO MONITOR
--- NOTE | 2019-07-08 23:00 | NUR ---
REASSESSMENT COMPLETE PER FLOW SHEET, NO ACUTE CHANGES FROM PRIOR ASSESSMENT, PT AWAKE AND ALERT, DENIES PAIN OR NEEDS, VSS, PACED RHYTHM ON CM, LARGE CUP ICE WATER GIVEN PER REQUEST, REPOSITIONED FOR COMFORT, CALL LIGHT IN REACH, WILL CONTINUE TO MONITOR
[2019-07-09] VITALS (25 sets, daily range): BP systolic 119–158; BP diastolic 49–82
--- NOTE | 2019-07-09 | NUR ---
AIR OVERLAY BED PLACED UNDER PT AND PROPERLY FUNCTIONING, COMPLETE BED BATH WITH GARCIA CARE AND LINEN CHANGE COMPLETED, BED ZEROED POST AIR OVERLAY BED PLACEMENT, PT REPOSITIONED FOR COMFORT, RESTRAINTS REPOSITIONED, ROM COMPLETED IN ALL EXTREMITIES, PT TOLLERATED ACTIVITIES WELL, VSS, NSR ON CM, BED ALARM ON, ADC GAURD AT BEDSIDE, WILL CONTINUE TO MONITOR
--- NOTE | 2019-07-09 03:00 | NUR ---
REASSESSMENT COMPLETE, NO ACUTE CHANGES FROM PRIOR ASSESSMENT, PT AWAKE AND ALERT, SLEEPING PRIOR TO ASSESSMENT, DENIES PAIN OR NEEDS AT THIS TIME, PACED RHYTHM ON CM, OTHER VSS, I/S COMPLETED TCDB COMPLETED, WILL CONTINUE TO MONITOR
--- NOTE | 2019-07-09 04:30 | NUR ---
PT OOB TO BATHROOM WITH ASSIST, LOOSE BROWN LARGE BM NOTED IN TOILET, PERICARE COMPLETED, COMPLETE BED LINEN AND GOWN CHANGE, REPOSITIONED PT IN BED FOR COMFORT, VSS
[2019-07-09 06:17] LABS: BASOPHILS 0.1 % (0-2); EOSINOPHILS 1.6 % (0-7); HEMATOCRIT 36.6 % (36.0-48.0); HEMOGLOBIN 11.6 g/dL (12-16); LYMPHOCYTES 18.9 % (15-50); MCH 28.2 pg (26.0-34.0); MCHC 31.7 g/dL (31.0-37.0); MCV 88.8 fL (80.0-100.0); MEAN PLATELET VOLUME 9.1 fL (7.4-10.4); MONOCYTES 7.1 % (2-11); NEUTROPHILS 70.3 % (40-80); RBC 4.12 10x6/uL (4.00-5.40); RDW 17.6 % (11.5-14.5); WBC 13.7 10x3/uL (4.8-10.8)
[2019-07-09 06:33] LABS: ANION GAP 10.9 mmol/L (8-16); CALCIUM 8.8 mg/dL (8.5-10.1); CARBON DIOXIDE 27.5 mmol/L (21.0-32.0); CREATININE - SERUM 0.9 mg/dL (0.6-1.3); POTASSIUM - SERUM 3.4 mmol/L (3.5-5.1)
--- NOTE | 2019-07-09 06:45 | NUR ---
PT ASSISTED OUT OF BED TO CHAIR, PT ABLE TO AMBULATE WITH MINIMAL ASSIST, VSS, NO ACUTE DISTRESS NOTED, PT DENIES PAIN, CALL LIGHT IN REACH, WILL CONTINUE TO MONITOR
[2019-07-09 07:04] LABS: PLATELET COUNT 434 10x3/uL (130-400)
--- NOTE | 2019-07-09 08:00 | NUR ---
SITTING IN CHAIR AT BEDSIDE. HAVING BREAKFAST. TOLERATING WELL. DENIES PAIN OR NEEDS.
--- NOTE | 2019-07-09 08:45 | NUR ---
LIQUID BM USING BEDSIDE COMMODE. AMBULATES WITH ASSISTANCE.
--- NOTE | 2019-07-09 09:00 | NUR ---
AMBULATED 88FT IN COLE WITH PT.
--- NOTE | 2019-07-09 10:15 | NUR ---
INCONTINENT OF STOOL IN CHAIR AND FLOOR.
--- NOTE | 2019-07-09 10:40 | NUR ---
DR RUIZ AT BEDSIDE. PT SITTING IN CHAIR, REPORTS FEELING WELL. NEW ORDERS RECIEVED FOR LASIX IV X 1 AND KDUR TID PO.
--- NOTE | 2019-07-09 11:30 | NUR ---
INCONTINENT OF STOOL. CLEANED UP AND GOWN/LINEN CHANGED.
--- NOTE | 2019-07-09 12:16 | NUR ---
Rehab Prescreening Consult recieved and the chart has been reviewed. She is an excellent ARU candidate, but is managed [facility] which requires a preauth. Once the OT eval has been completed all information will be submitted to [facility] for their review. Thank You for the Referral. Ileana Brian RN Clinical Liaison, Rehab
--- NOTE | 2019-07-09 12:20 | NUR ---
EATING LUNCH WITH FAMILY AT BEDSIDE. DENIES NEEDS
--- NOTE | 2019-07-09 13:30 | NUR ---
INCONTINENT OF LIQUID STOOL. BATHED AND GOWN/LINEN CHANGED.
--- NOTE | 2019-07-09 14:15 | NUR ---
Nutrition Follow-up: Extubated 07/07. Noted pt having loose stools and stool softeners/laxatives held. Diet: Diabetic PO intake: 25-50% (07/08) Wt: 212.5# (07/09); 212.7# (07/06); 195# (06/26) Labs noted: K+ 3.4 Meds noted: Solumedrol, Lantus, Humulin, KDur, KCl -Continue current diet as tolerated. -Offer Glucerna with meals. -Monitor wt. -RD following.
--- NOTE | 2019-07-09 14:20 | NUR ---
AMBULATED 250FT IN COLE WITH PT. TOLERATED WELL. BACK TO BED PER REQUEST.
--- NOTE | 2019-07-09 18:42 | NUR ---
ORAL CARE DONE WITH PERIDEX
--- NOTE | 2019-07-09 21:00 | NUR ---
SCHEDULED MEDS GIVEN PER MAR/ORDERS, PT ABLE TO SWALLOW FLUIDS AND MEDS WITHOUT DISTRESS, VSS, LARGE CUP ICE WATER GIVEN PER REQUEST, CALL LIGHT IN REACH, BED ALARM ON, WILL CONTINUE TO MONITOR
--- NOTE | 2019-07-09 23:00 | NUR ---
REASSESSMENT COMPLETE, NO ACUTE CHANGES FROM PRIOR ASSESSMENT, PT AWAKE AND ALERT, DENIES PAIN OR NEEDS AT THIS TIME, VSS, ALL DRSG'S C/D/I, REPOSITIONS SELF FOR COPMFORT, CALL LIGHT IN REACH, BED ALARM ON, WILL CONTINUE TO MONITOR
[2019-07-10] VITALS (26 sets, daily range): BP systolic 113–165; BP diastolic 49–104
--- NOTE | 2019-07-10 03:00 | NUR ---
REASSESSMENT COMPLETE, NO ACUTE CHANGES FROM PRIOR ASSESSMENT, PT SLEEPING PRIOR TO ASSESSMENT, WAKES ALERT AND ORIENTED, DENIES PAIN OR NEEDS AT THIS TIME, I/S COMPLETED [id number], TCDB DONE, REPOSITIONED FOR COMFORT, VSS, PACED RHYTHM @79bpm ON CM, CALL LIGHT IN REACH, WILL CONTINUIE TO MONITOR
--- NOTE | 2019-07-10 03:45 | NUR ---
PT ASSISTED OUT OF BED TO BEDSIDE COMMODE, PT INCONTINENT OF BOWEL AND BLADDER, SOFT/LIQUID BROWN BM NOTED IN BREIF, PERICARE AND PARTIAL BATH COMPLETED, VSS, REPOSITIONED IN BED FOR COMFORT, WILL CONTINUE TO MONITOR
[2019-07-10 06:49] LABS: ANION GAP 11.2 mmol/L (8-16); CALCIUM 8.4 mg/dL (8.5-10.1); CARBON DIOXIDE 26.3 mmol/L (21.0-32.0); POTASSIUM - SERUM 3.5 mmol/L (3.5-5.1)
[2019-07-10 06:50] LABS: BASOPHILS 0.2 % (0-2); EOSINOPHILS 1.5 % (0-7); HEMATOCRIT 35.8 % (36.0-48.0); HEMOGLOBIN 11.2 g/dL (12-16); LYMPHOCYTES 16.7 % (15-50); MCH 27.9 pg (26.0-34.0); MCHC 31.3 g/dL (31.0-37.0); MCV 89.1 fL (80.0-100.0); MEAN PLATELET VOLUME 8.8 fL (7.4-10.4); NEUTROPHILS 74.6 % (40-80); PLATELET COUNT 447 10x3/uL (130-400); RBC 4.02 10x6/uL (4.00-5.40); RDW 17.7 % (11.5-14.5); WBC 13.4 10x3/uL (4.8-10.8)
--- NOTE | 2019-07-10 09:31 | NUR ---
0700 PT RECIEVED UP IN CHAIR ALERT AN DORIENTED VSS, NO SIGNS OF PAIN PICC LINE DRESSING CDI, SEE SHIFT ASSESSMENT FOR DETAILS 0830 AM MEDS GIVEN, PICC LINE UNABLE TO FLUSH OR DRAW, HARSHIL GRIMALDO NURSE NOTIFIED AND VASCULAR ACCESS NURSERUSSELL WHO ALSO ATTEMPTED TO FLUSH AND WAS UNABLE
--- NOTE | 2019-07-10 13:44 | NUR ---
EDOUARD DRAIN DCD BY DR GRIMALDO NURSE HARSHIL, ATTEMPTED TO INSERT PIVX2, CALLED VASCULAR ACCESS NURSE RUSSELL TO DC PICC AND START PIV
--- NOTE | 2019-07-10 18:22 | NUR ---
PT ASSISTED BACK TO BED
--- NOTE | 2019-07-10 19:00 | NUR ---
RECIEVED PATIENT IN BED , AWAKE ALERT AND ORIENTED X 4. MONITORS CONNECTED TO PATIENT WITH ALARMS SET. VSS. TEMPORARAY PACEMAKER CONNECTED TO PATIENT AND FUNCTIONING PROPERLY. ATRIALY PACED ON MONITOR RATE OF 79 ASSESSMENT COMPLETED PER FLOW SHEET WITH NO ACUTE DISTRESS OBSERVED. CALL LIGHT IN REACH AND ABLE TO UTIILIZE TO MAKE NEEDS KNOWN.
--- NOTE | 2019-07-10 22:29 | NUR ---
PT OOB TO BATHROOM, YELLOW VOID WITH LOOSE BROWN BM NOTED, PERICARE COMPLETED, NEW BREIF PLACED ON PT, ASSISTED BACK IN BED AND POSITIONED FOR COMFORT, VSS, WILL CONTINUE TO MONITOR
[2019-07-11] VITALS (26 sets, daily range): BP systolic 118–158; BP diastolic 47–112
--- NOTE | 2019-07-11 03:00 | NUR ---
REASSESSMENT COMPLETE, NO ACUTE CHANGES FROM PRIOR ASSESSMENT, PT SLEEPING ABLE TO WAKE ALERT AND ORRIENTED, DENIES PAIN OR NEEDS AT THIS TIME, VSS, ALL DRSG'S C/D/I, REPOSITIONED FOR COMFORT, CALL LIGHT IN REACH, BED ALARM ON, WILL CONTINUE TO MONITOR
--- NOTE | 2019-07-11 06:00 | NUR ---
PT OUT OF BED TO BATHROOM WITH MINIMAL ASSIST, PT AT TIMES UNSTEADY WITH GAIT, CLEAR YELLOW VOID NOTED, PERICARE DONE BY PT, PT AMBULATED TO BEDSIDE CHAIR, REPOSITIONED FOR COMFORT, VSS, PACED RHYTHM ON CM @ 80bpm, PACEMAKER BATTERY CHANGED PER PROTOCOL, WHEN PACEMAKER OFF PT'S RHYTHM SINUS SIMI @ 54 bpm, NO S/S OF ACUTE DISTRESS NOTED, PACEMAKER ON AND FUNCTIONING, CALL LIGHT IN [facility], WILL CONTINUE TO MONITOR
[2019-07-11 06:37] LABS: CALC OSMOLALITY 285 mosm/kg (275-300); CALCIUM 8.6 mg/dL (8.5-10.1); CARBON DIOXIDE 25.2 mmol/L (21.0-32.0); CHLORIDE - SERUM 110 mmol/L (98-107); CREATININE - SERUM 0.8 mg/dL (0.6-1.3); POTASSIUM - SERUM 3.8 mmol/L (3.5-5.1); SODIUM 143 mmol/L (136-145); UREA NITROGEN 18 mg/dL (7-18); eGFR NON AFRICAN AMERICAN 78 mL/min (90-120)
[2019-07-11 06:38] LABS: GLUCOSE 73 mg/dL (74-106)
[2019-07-11 07:04] LABS: BASOPHILS 0.2 % (0-2); EOSINOPHILS 1.7 % (0-7); HEMATOCRIT 34.1 % (36.0-48.0); HEMOGLOBIN 10.7 g/dL (12-16); IMMATURE GRANULOCYTES 0.6 % (0-5); LYMPHOCYTES 22.5 % (15-50); MCHC 31.4 g/dL (31.0-37.0); MCV 89.3 fL (80.0-100.0); MEAN PLATELET VOLUME 8.9 fL (7.4-10.4); MONOCYTES 8.3 % (2-11); NEUTROPHILS 66.7 % (40-80); PLATELET COUNT 402 10x3/uL (130-400); RBC 3.82 10x6/uL (4.00-5.40); RDW 17.6 % (11.5-14.5)
--- NOTE | 2019-07-11 09:53 | NUR ---
0700 pt recieved up in chair alert and oriented o2 3l nc r hand piv sl, patent, tpm battery changed by previous shift, aai 80 ama 20, substernal dressing cdi, lue dressing cdi, rle harvest sites and midsternal incision site open to air 0900 am meds given, assisted to bathroom without difficulty
--- NOTE | 2019-07-11 12:33 | NUR ---
Nutrition Follow-up: Fair PO intake. Diarrhea improving. Encouraged PO intake and discussed diabetic diet. Does not want Glucerna. Diet: Diabetic Wt: 210.8# (07/11); 212.5# (07/09); 195# (06/26) Last BM: 07/11 Labs noted: Glu 73 Meds noted: Solumedrol, KDur, Lantus, Humulin -Continue current diet as tolerated. -Encourage PO intake. -Monitor wt. -Will attempt to discuss diabetic diet further prior to d/c. -RD following.
--- NOTE | 2019-07-11 14:46 | NUR ---
RECIEVED CALL FROM DR GRIMALDO NURSE HARSHIL TO STOP TPM AND GET EKG AND DR BELLAMY WOULD BE OVER MOMENTARILY, EKG DONE AND HR 50S SINUS RHYTHM
--- NOTE | 2019-07-11 15:43 | NUR ---
TPM ON AAI [address] BELLAMY
--- NOTE | 2019-07-11 15:53 | NUR ---
OT NOTE: PT COMPLETED ADL MOB WITH WITH CGA/MIN A. PT COMPLETED UE AROM AXS. PT DID WELL. PT MOTIVIATED TO RETURN TO PLOF. [phone] THANK YOU, JEFF DASH
--- NOTE | 2019-07-11 16:13 | NUR ---
TPM RATE CHANGED TO [address] BELLAMY
--- NOTE | 2019-07-11 17:30 | NUR ---
PT HAD CHG BATH WITH FULL LINEN CHANGE AND ALL DRESSINGS CHANGED, ATE 100% BREAKFAST AND LUNCH, 75% OF DINNER
--- NOTE | 2019-07-11 18:35 | NUR ---
PT ASSISTED TO BED
--- NOTE | 2019-07-11 19:00 | NUR ---
Report received from off going nurse. Pt is laying in bed watching tv. Pt denies needs at this time. Initial assessment completed, see flowsheet for details. Pt is showing no s/s of distress. Will continue to monitor.
--- NOTE | 2019-07-11 21:00 | NUR ---
Pt is laying in bed with eyes closed. No needs voiced. NO s/s of distress noted. Will continue to monitor.
--- NOTE | 2019-07-11 23:00 | NUR ---
Reassessment completed, see flowsheet for details. Pt is laying in bed with eyes closed at this time. No needs voiced. No s/s of distress noted. Will continue to monitor.
[2019-07-12] VITALS (23 sets, daily range): BP systolic 119–158; BP diastolic 42–77
--- NOTE | 2019-07-12 01:00 | NUR ---
Pt is laying in bed with eyes closed. No s/s of distress noted. Will continue to monitor.
--- NOTE | 2019-07-12 03:00 | NUR ---
Reassessment completed, see flowsheet for details. Pt is laying in bed with eyes closed. No s/s of distress noted. Will continue to monitor.
--- NOTE | 2019-07-12 05:00 | NUR ---
Pt is laying in bed with eyes closed. No needs noted. Will continue to monitor.
[2019-07-12 06:33] LABS: BASOPHILS 0.3 % (0-2); EOSINOPHILS 2.2 % (0-7); HEMATOCRIT 35.1 % (36.0-48.0); HEMOGLOBIN 10.9 g/dL (12-16); IMMATURE GRANULOCYTES 0.5 % (0-5); MCH 27.9 pg (26.0-34.0); MCHC 31.1 g/dL (31.0-37.0); MCV 89.8 fL (80.0-100.0); MEAN PLATELET VOLUME 8.7 fL (7.4-10.4); MONOCYTES 6.5 % (2-11); NEUTROPHILS 61.5 % (40-80); PLATELET COUNT 351 10x3/uL (130-400); RBC 3.91 10x6/uL (4.00-5.40); RDW 17.7 % (11.5-14.5); WBC 9.5 10x3/uL (4.8-10.8)
[2019-07-12 06:44] LABS: ANION GAP 13.6 mmol/L (8-16); CALCIUM 8.9 mg/dL (8.5-10.1); CARBON DIOXIDE 23.7 mmol/L (21.0-32.0); CREATININE - SERUM 0.9 mg/dL (0.6-1.3); POTASSIUM - SERUM 4.3 mmol/L (3.5-5.1)
--- NOTE | 2019-07-12 09:03 | NUR ---
0700 PT RECIEVED UP IN CHAIR ALERT AND ORIENTED VSS O2 1L NC, R HAND PIV SL, EASILY FLUSHES, TPM AAI 70 AMA 20, DRESSINGS CDI, SEE ASSESSMENT FOR DETAILS 0800 DR BELLAMY IN UNIT, ORDERS TO TURN TPM OFF, HR 60S NSR 0900 AM MEDS GIVEN, ASSISTED TO BATHROOM AND BACK TO CHAIR, WITHOUT O2 SPO2 DROPPING INTO 80S, CASE MANAGEMENT NOTIFIED OF DR BELLAMY WANTING HER TO DC TOMORROW WITH HOME HEALTH AND O2
--- NOTE | 2019-07-12 09:39 | NUR ---
2X THIS AM PT WALKING IN ROOM WITHOUT USING CALL LIGHT DESPITA CALL LIGHT WITHIN REACH, SONNY CHAIR ALARM APPLIED TO CHAIR.
--- NOTE | 2019-07-12 09:49 | NUR ---
HALF OF LISA FROM LUE REMOVED BY DR DILLAN GERBER HARSHIL
--- NOTE | 2019-07-12 10:25 | NUR ---
paged dr maurer nurse brodie to notify of hr maggy Root
--- NOTE | 2019-07-12 11:28 | NUR ---
PT HAVING BIGEMENY PREMATURE BEATS SWITH APPROX 1 SECOND BETWEEN PREMATURE BEAT AND SINUS BEAT, DR GRIMALDO NURSE HARSHIL NOTIFIED
--- NOTE | 2019-07-12 11:50 | NUR ---
Rehab Note- Received VM from [facility] with [facility] and has an approved acute inpatient rehab stay Auth #[id number], for a 7 day stay, through 07/19/2019. Spoke to FELIPE Wagoner. Will accept the patient when ready for discharge from the acute hospital. Will continue to follow at this time. Thank you for this referral! Lynette Guardado RN Clinical Liaison, [facility] Rehab
--- NOTE | 2019-07-12 14:49 | NUR ---
OT NOTE: PT DOING WELL ; UP IN CHAIR; AGREEABLE TO PARTICIPATE IN THERAPY. IN ROOM AMBULATION WITHOUT WALKER BUT WITH GAIT BELT, 02, AND MIN ASSIST. UPPER BODY ADLS WITH SET UP; FEEDING WITH SET UP; MIN ASSIST WITH TOILETING. AMB INTO HALLWAY WITH MIN ASSIST IN ORDER TO INCREASE STRENGTH AND FUNCITONAL ENDURANCE. PT DOING WELL; 02 SATS REMAINED ABOVE 90 CLINT HEARD, OTR/L 210-315
--- NOTE | 2019-07-12 14:55 | MORECARE ---
CASE MANAGEMENT DISCHARGE SUMMARY PATIENT: NAUN CHAVEZ UNIT: [id number] ADM DATE: 06/26/19 AGE: 59 : 60 SEX: F ROOM/BED: D.[facility] AUTHOR: EDNA,DOC PHYSICIAN: REFERRING PHYSICIAN: PETRA BELLAMY MD DATE OF SERVICE: 07/12/19 Discharge Plan Patient Name: NAUN CHAVEZ Facility: [facility]:[place] : 1960 Planned Disposition: Anticipated Discharge Date: Discharge Date: Expected LOS: Initial Reviewer: [email or web address] Initial Review Date: 06/28/2019 Generated: 07/12/19 3:55 pm Comments DCP- Discharge Planning Updated by [email or web address]: Rizwana Vidal on 07/12/19 1:[address] CM received notification that insurance has given auth for patient to go to Inpatient Rehab @ [facility]. CM spoke to Dr. Bellamy and he said patient could discharge to rehab tomorrow. CM notified Lynette in rehab of plan. Patient agrees to discharge plan. CM will continue to follow and assist as needed with discharge planning / needs. DCP- Discharge Planning Updated by [email or web address]: Rizwana Vidal on 06/28/19 8:[address] Patient Name: NAUN CHAVEZ Admission Status: Urgent Accout number: [id number] Admission Date: 06-26-2019 : 1960 Admission Diagnosis: Attending: PETRA BELLAMY Current LOS: 2 Anticipated DC Date: Planned Disposition: Primary Insurance: [facility] [employer] Discharge Planning Comments: CM met with patient's daughter Crystal Julian to complete initial dc planning assessment. Patient is currently on vent and sedated. CM educated Crystal on the CM role and verbal consent given by patient to complete assessment. Patient lives at home with her daughter where she is independent with her care. At discharge patient plans to return home and feels this is a safe discharge. CM discussed availability of home health, rehab services, and medical equipment. Her daughter will be her dolly driver home. Patient has a nebulizer Patient denied known discharge needs at this time. CM will continue to follow and will assist as needed with dc plans/needs. Beveller Operator: Rizwana Vidal DCPIA - Discharge Planning Initial Assessment Updated by [email or web address]: Rizwana Vidal on 06/28/19 9:07 pm * How many steps to enter\exit or inside your home? * PCP unknown * Pharm[facility] * Preadmission Environment Home with Family * ADLs Independent * Equipment Nebulizer * List name and contact numbers for known caregivers / representatives who currently or will assist patient after discharge: CRYSTAL JULIAN - JENNIFER- [phone] * Verbal permission to speak to the caregivers and representatives has been obtained from the patient. N/A * Community resources currently utilized None * Additional services required to return to the preadmission environment? No * Can the patient safely return to the preadmission environment? Yes * Has this patient been hospitalized within the prior 30 days at any hospital? No Coverage Notice Reviewer: [email or web address] - Rizwana Vidal Notice Issued Date-Time: 07/09/2019 17:00 Notice Type: Patient Choice Letter Notice Delivered To: Patient Relationship to Patient: Self Firer Boiler Name: Delivery Method: HAND - Hand Delivered [place] Days: Prior Verbal Notification: Recipient Understood Notice: Yes Recipient Signature: Yes Med Rec Note Co-signed by Attending: Coverage Notice Comment: INPT REHAB [facility] Last DP export: 06/28/19 8:11 p Patient Name: NAUN CHAVEZ Page [id number] at 1455 All edits/amendments must be made on the electronic document DICTATION DATE: 07/12/19 1457 TC OPERATOR: YEMI 07/12/19 1452 RPT#: [id number] [place] DATE: STATUS: ADM IN [facility] [address] [place] [address] END OF REPORT
--- NOTE | 2019-07-12 18:03 | NUR ---
PT ABLE TO REPOSITION SELF, CHG BATH AND LINEN CHANGE DONE THIS AFTERNOON, FAMILY AND PT AGREEABLE TO DC TO REHAB UNIT TOMORROW
--- NOTE | 2019-07-12 18:33 | NUR ---
EARLIER TODAY SPOKE IN DETAIL WITH PT AND HER YOUNGEST DAUGHTER REGUARDING REHAB, PT ALSO DISCUSSED IT WITH VIOLETTA TONY AND THERAPY STAFF. RECIEVED CALL FROM PTS TWO OTHER DAUGHTERS ASKING WHY PT COULD NOT GO HOME, TOLD THEM THAT BEING ACCEPTED TO REHAB WAS A BETTER OPTION SO SHE COULD CONTINUE TO BE FOLLOWED BY HER PHYSICIANS IF NEEDED, SHE IS UNSTEADY WHILE WALKING AND WOULD BENEFIT FROM THERAPY AND THEY CAN ASSIST IN WEANING O2, ASKED ABOUT REHAB VISITING HOURS AND I TOLD THEM I WAS UNAWARE WHAT THEY WERE BUT KNEW THEY HAD THEM, ONE DAUGHTER YELLED "SHE NEEDS TO FUCKING FIND OUT". THE OTHER DAUGHTER ASKED IF PT COULD LEAVE AMA, I TOLD THEM YES BUT INSURANCE USUALLY DOES NOT PAY WHEN A PT LEAVES AMA. THEY THEN STATED THEY WOULD CALL THE PT AND HUNG UP. SPOKE IN DETAIL WITH PT WHO STATED "DONT LISTEN TO THOSE TWO THEY ARE ARGUEMENTATIVE" AND WAS STILL IN AGREEMENT THAT REHAB IS HER BEST OPTION. CALLED DR BELLAMY AND UPDATED THAT THOUGH TWO DAUGHTERS WERE UNSURE ABOUT REHAB THE PT AND YOUNGEST DAUGHTER WERE STILL IN AGREEMENT.
--- NOTE | 2019-07-12 19:00 | NUR ---
REPORT RECEIVED CARE ASSUMED ASSSESSMENT DONE SEE FLOW SHEET. RHYTHM CHANGE NOTED. STAT LABS DRAWN. HEMO STABLE WILL CONTINUE TO MONITOR.
[2019-07-12 20:03] LABS: MAGNESIUM - SERUM 1.2 mg/dL (1.8-2.4); POTASSIUM - SERUM 3.9 mmol/L (3.5-5.1)
--- NOTE | 2019-07-12 20:19 | NUR ---
DR BELLAMY INFORMED OF PT STATUS ORDERS RECEIVED. VSS INCREASE IN HR NOTED WILL CONTINUE TO MONITOR.
--- NOTE | 2019-07-12 21:00 | NUR ---
MEDS GIVEN PER MAR. VSS WILL CONTINUE TO MONITOR.
--- NOTE | 2019-07-12 23:00 | NUR ---
REASSESSMENT DONE SEE FLOW SHEET VSS
[2019-07-13] VITALS (24 sets, daily range): BP systolic 114–149; BP diastolic 45–93
--- NOTE | 2019-07-13 03:00 | NUR ---
0100 WATER PROVIDED PER PT REQUEST. VSS. 0300 REASSESSMENT DONE SEE FLOW SHEET VSS WILL CONTINUE TO MONITOR.
--- NOTE | 2019-07-13 04:30 | NUR ---
GAGE PROVIDED FSBS 71.
[2019-07-13 05:36] LABS: BASOPHILS 0.3 % (0-2); EOSINOPHILS 1.2 % (0-7); HEMATOCRIT 33.8 % (36.0-48.0); HEMOGLOBIN 10.5 g/dL (12-16); IMMATURE GRANULOCYTES 0.3 % (0-5); LYMPHOCYTES 33.3 % (15-50); MCH 27.8 pg (26.0-34.0); MCHC 31.1 g/dL (31.0-37.0); MCV 89.4 fL (80.0-100.0); MEAN PLATELET VOLUME 8.7 fL (7.4-10.4); MONOCYTES 6.4 % (2-11); NEUTROPHILS 58.5 % (40-80); PLATELET COUNT 325 10x3/uL (130-400); RBC 3.78 10x6/uL (4.00-5.40); RDW 17.6 % (11.5-14.5); WBC 9.4 10x3/uL (4.8-10.8)
[2019-07-13 05:49] LABS: ANION GAP 15.3 mmol/L (8-16); CALCIUM 8.7 mg/dL (8.5-10.1); CARBON DIOXIDE 21.5 mmol/L (21.0-32.0); CREATININE - SERUM 0.9 mg/dL (0.6-1.3); POTASSIUM - SERUM 3.8 mmol/L (3.5-5.1)
--- NOTE | 2019-07-13 05:58 | NUR ---
FSBS RECONFIRMED. OJ PROVIDED.
--- NOTE | 2019-07-13 09:54 | NUR ---
UP IN CHAIR, VSS, NSR ON CM. MAYRA BREAKFAST AND AMB TO BATHROOM. BATH AND LINENS CHANGED. PT MAYRA WELL.
--- NOTE | 2019-07-13 11:14 | NUR ---
DR STACY HERE. DR SHIPLEY HERE THIS AM ON ROUNDS. O2 DECREASED TO 1LNC. WILL MONITOR SPO2.
--- NOTE | 2019-07-13 11:26 | NUR ---
Nutrition Follow-up: Tolerating PO intake. No BMs recorded yesterday. Possible d/c to rehab today. Diet: Diabetic Wt: 196# (07/13); 210.8# (07/11); 190# (admit) Labs noted: Glu 60 Meds noted: Prednisone, Micro K, Humulin -Continue current diet as tolerated; honor food preferences within diet restrictions. -Encourage PO intake. -Monitor wt. -RD following.
--- NOTE | 2019-07-13 17:20 | NUR ---
1400-PT AMB ENTIRE LENGTH OF COLE WITH OUT PROBLEMS. STEADY GAIT.
--- NOTE | 2019-07-13 17:23 | NUR ---
PT SITTING UP IN CHAIR. VSS. FAMILY AT BS.
--- NOTE | 2019-07-13 19:30 | NUR ---
REPORT REC'D AND CARE ASSUMED, REC'D PT SITTING UP IN RECLINER WATCHING TV, AWAKE, ALERT, AND ORIENTED ON ROOM AIR, RIGHT HAND PIV SALINE LOCKED, MIDSTERNAL INCISION OPEN TO AIR, P/M WIRES WITH DRSG CDI, LEFT FOREARM WITH STERI STRIPS, CDI, PT DENIES PAIN OR NEEDS, TEDS ON, BEDSIDE TABLE AND CALL LIGHT IN REACH.
--- NOTE | 2019-07-13 19:40 | NUR ---
PT ASSISTED TO BATHROOM AND THEN BACK TO CHAIR, FURTHER NEEDS DENIED.
--- NOTE | 2019-07-13 20:00 | NUR ---
BED LINEN CHANGED AND PT ASSISTED BACK TO BED, CELL PHONE AND TABLE WITHIN REACH, SR UP X 2 ,BED IN LOW POSITION.
--- NOTE | 2019-07-13 23:30 | NUR ---
REASSESSMENT COMPLETED, PT ASSISTED UP TO BATHROOM THEN BACK TO BED WITH MINIMAL ASSISTANCED, PT REMAINS ON ROOM AIR, O2 SAT 97%, ICE WATER PROVIDED ON REQUEST, WILL CONT TO MONITOR FOR CHANGES.
[2019-07-14] VITALS (12 sets, daily range): BP systolic 115–174; BP diastolic 44–72
--- NOTE | 2019-07-14 00:40 | NUR ---
PT ASSISTED UP TO BATHROOM, PT REPORTS HAVING A BM, BACK TO BED WITHOUT DIFFICULTY, WILL MONITOR FOR CHANGES.
--- NOTE | 2019-07-14 02:00 | NUR ---
NO CHANGES IN STATUS AT THIS TIME.
--- NOTE | 2019-07-14 05:00 | NUR ---
PT ASSISTED UP TO BATHROOM AND THEN TO RECLINER, PT REFUSES BATH AT THIS TIME, STATES " I WILL LATER", APPLE JUICE AND COFFEE PROVIDED, CALL LIGHT AND BEDSIDE TABLE IN REACH.
[2019-07-14 05:53] LABS: BASOPHILS 0.4 % (0-2); HEMATOCRIT 34.1 % (36.0-48.0); HEMOGLOBIN 10.5 g/dL (12-16); IMMATURE GRANULOCYTES 0.3 % (0-5); LYMPHOCYTES 30.5 % (15-50); MCH 28.1 pg (26.0-34.0); MCHC 30.8 g/dL (31.0-37.0); MCV 91.2 fL (80.0-100.0); MONOCYTES 7.3 % (2-11); NEUTROPHILS 59.5 % (40-80); PLATELET COUNT 352 10x3/uL (130-400); RBC 3.74 10x6/uL (4.00-5.40); RDW 17.8 % (11.5-14.5); WBC 9.8 10x3/uL (4.8-10.8)
[2019-07-14 06:13] LABS: ANION GAP 13.4 mmol/L (8-16); CARBON DIOXIDE 23.6 mmol/L (21.0-32.0); MAGNESIUM - SERUM 1.8 mg/dL (1.8-2.4)
[2019-07-14] MEDS ORDERED: IPRAT-ALBUT 0.5-3 ML UPD (11:59)
[2019-07-14] MEDS ORDERED: PREDNISONE10 MG PO (12:00)
[2019-07-14] MEDS ORDERED: K-DUR20 MEQ PO (13:19)
[2019-07-14] MEDS ORDERED: BAYER CHEWABLE81 MG PO (13:20)
[2019-07-14] MEDS ORDERED: LISINOPRIL2.5 MG PO (13:20)
[2019-07-14] MEDS ORDERED: MAG-OX 400 MG400 MG PO (13:20)
--- NOTE | 2019-07-14 13:44 | NUR ---
DC INSTRUCTIONS AND REPORT CALLED DOWNSTAIRS TO REHAB. PT AGREABLE TO GO. WILL DC TO REHAB ORDERED BY DR BELLAMY.
--- NOTE | 2019-07-14 16:36 | MORECARE ---
CASE MANAGEMENT DISCHARGE SUMMARY PATIENT: NAUN CHAVEZ UNIT: [id number] ADM DATE: 06/26/19 AGE: 59 : 60 SEX: F ROOM/BED: [facility] AUTHOR: EDNA,DOC PHYSICIAN: REFERRING PHYSICIAN: PETRA BELLAMY MD DATE OF SERVICE: 07/14/19 Discharge Plan Patient Name: ANUN CHAVEZ Facility: [facility]:[place] : 1960 Planned Disposition: Anticipated Discharge Date: Discharge Date: 07/14/2019 Expected LOS: Initial Reviewer: [id number] Initial Review Date: 06/28/2019 Generated: 07/14/19 5:36 pm Comments DCP- Discharge Planning Updated by [email or web address]: Rizwana Vidal on 07/14/19 3:[address] Patient Name: NAUN CHAVEZ Encounter No: [id number] : 1960 Primary Insurance: [employer] Anticipated DC Date: Planned Disposition: External Planned Provider: : D/C DILMA SIGNED 07/14/19 @ 1130 DCP follow-up note: Patient and family in agreement with discharge plan. No changes to plan. Case management will follow and assist as needed. Rizwana Vidal DCP- Discharge Planning Updated by [email or web address]: Rizwana Vidal on 07/12/19 1:[address] CM received notification that insurance has given auth for patient to go to Inpatient Rehab @ [facility]. CM spoke to Dr. Bellamy and he said patient could discharge to rehab tomorrow. CM notified Lynette in rehab of plan. Patient agrees to discharge plan. CM will continue to follow and assist as needed with discharge planning / needs. DCP- Discharge Planning Updated by [email or web address]: Rizwana Vidal on 06/28/19 8:[address] Patient Name: NAUN CHAVEZ Admission Status: Urgent Accout number: [id number] Admission Date: 06-26-2019 : 1960 Admission Diagnosis: Attending: PETRA BELLAMY Current LOS: 2 Anticipated DC Date: Planned Disposition: Primary Insurance: [employer] Discharge Planning Comments: CM met with patient's daughter Crystal Julian to complete initial dc planning assessment. Patient is currently on vent and sedated. CM educated Crystal on the CM role and verbal consent given by patient to complete assessment. Patient lives at home with her daughter where she is independent with her care. At discharge patient plans to return home and feels this is a safe discharge. CM discussed availability of home health, rehab services, and medical equipment. Her daughter will be her driver supervisor home. Patient has a nebulizer Patient denied known discharge needs at this time. CM will continue to follow and will assist as needed with dc plans/needs. Entertainment Musician: Rizwana Vidal DCPIA - Discharge Planning Initial Assessment Updated by [email or web address]: Rizwana Vidal on 06/28/19 9:07 pm * How many steps to enter\exit or inside your home? * PCP unknown * Pharmacy [facility] * Preadmission Environment Home with Family * ADLs Independent * Equipment Nebulizer * List name and contact numbers for known caregivers / representatives who currently or will assist patient after discharge: CRYSTAL JULIAN - DAUGHTER- [phone] * Verbal permission to speak to the caregivers and representatives has been obtained from the patient. N/A * Community resources currently utilized None * Additional services required to return to the preadmission environment? No * Can the patient safely return to the preadmission environment? Yes * Has this patient been hospitalized within the prior 30 days at any hospital? No Coverage Notice Reviewer: [email or web address] Ghassan Vidal Notice Issued Date-Time: 07/09/2019 17:00 Notice Type: Patient Choice Letter Notice Delivered To: Patient Relationship to Patient: Self Pump Tester Name: Delivery Method: HAND - Hand Delivered [place] Days: Prior Verbal Notification: Recipient Understood Notice: Yes Recipient Signature: Yes Med Rec Note Co-signed by Attending: Coverage Notice Comment: INPT REHAB [facility] Reviewer: [email or web address] Ghassan Vidal Notice Issued Date-Time: 07/14/2019 11:30 Notice Type: IM Discharge Notice Notice Delivered To: Patient Relationship to Patient: Self Pump Tester Name: Delivery Method: HAND - Hand Delivered [place] Days: Prior Verbal Notification: Recipient Understood Notice: Yes Recipient Signature: Yes Med Rec Note Co-signed by Attending: Coverage Notice Comment: Last DP export: 07/12/19 1:55 p Patient Name: NAUN CHAVEZ Page [id number] at 1636 All edits/amendments must be made on the electronic document DICTATION DATE: 07/14/19 1636 PET SITTING: YEMI 07/14/19 1636 RPT#: [id number] DC DATE:07/14/19 STATUS: DIS IN [facility] [address] [place] [address] END OF REPORT
== END 2019-07-14 14:44 | DRG 235 ==
LOC: D.CVICU 06-26 05:00 → D.SDCHOLD 06-26 05:00 → D.CVICU 06-26 12:12 → D.SDCHOLD 06-26 14:00 → D.ICU 07-03 11:51 → D.CVICU 07-03 11:51
PROVIDERS: Anesthesiology; Family Medicine; Internal Medicine Cardiovascular Disease; Internal Medicine Nephrology; Internal Medicine Pulmonary Disease; ADMIT Thoracic Surgery (Cardiothoracic Vascular Surgery); ATTEND Thoracic Surgery (Cardiothoracic Vascular Surgery)
PROC: 021109W Bypass Coronary Artery, Two Arteries from Aorta with Autologous Venous Tissue, Open Approach (ICD-10-PCS; 2019-06-26)
PROC: 06BP4ZZ Excision of Right Saphenous Vein, Percutaneous Endoscopic Approach (ICD-10-PCS; 2019-06-26)
PROC: 03BC0ZZ Excision of Left Radial Artery, Open Approach (ICD-10-PCS; 2019-06-26)
PROC: 5A1221Z Performance of Cardiac Output, Continuous (ICD-10-PCS; 2019-06-26)
PROC: B24BZZ4 Ultrasonography of Heart with Aorta, Transesophageal (ICD-10-PCS; 2019-06-26)
PROC: 5A1955Z Respiratory Ventilation, Greater than 96 Consecutive Hours (ICD-10-PCS; 2019-06-26)
PROC: 0BH17EZ Insertion of Endotracheal Airway into Trachea, Via Natural or Artificial Opening (ICD-10-PCS; 2019-06-26)
PROC: 02100Z9 Bypass Coronary Artery, One Artery from Left Internal Mammary, Open Approach (ICD-10-PCS; principal; 2019-06-26 07:30)
PROC: 02100AW Bypass Coronary Artery, One Artery from Aorta with Autologous Arterial Tissue, Open Approach (ICD-10-PCS; 2019-06-26 07:30)
PROC: 0B9G8ZX Drainage of Left Upper Lung Lobe, Via Natural or Artificial Opening Endoscopic, Diagnostic (ICD-10-PCS; 2019-06-30)
PROC: 05HY33Z Insertion of Infusion Device into Upper Vein, Percutaneous Approach (ICD-10-PCS; 2019-07-04)
DX: I25.10 Atherosclerotic heart disease of native coronary artery without angina pectoris (principal); N17.0 Acute kidney failure with tubular necrosis; J95.821 Acute postprocedural respiratory failure; F17.203 Nicotine dependence unspecified, with withdrawal; J98.11 Atelectasis; I48.91 Unspecified atrial fibrillation; D64.9 Anemia, unspecified; I10 Essential (primary) hypertension; E78.5 Hyperlipidemia, unspecified; E11.40 Type 2 diabetes mellitus with diabetic neuropathy, unspecified; R00.1 Bradycardia, unspecified; E66.9 Obesity, unspecified; Z68.33 Body mass index [BMI] 33.0-33.9, adult; D72.829 Elevated white blood cell count, unspecified; B37.9 Candidiasis, unspecified; T17.990A Other foreign object in respiratory tract, part unspecified in causing asphyxiation, initial encounter; R53.81 Other malaise

== ENCOUNTER 2020-02-22 10:45 | Outpatient (CLI) | payer MEDICARE, MEDICAID ==
[2019-07-14 15:19] VITALS: BMI 25.8
[~2020-02-22 10:45] MED LIST changes: +FENOFIBRATE160 MG PO; +IPRAT-ALBUT 0.5-3 ML UPD; +K-DUR20 MEQ PO; +LISINOPRIL2.5 MG PO; +MAG-OX 400 MG400 MG PO; +PREDNISONE10 MG PO; +ZALEPLON PO; +ZANAFLEX4 MG PO
== END 2020-02-22 11:45 | disposition home or self-care (01) ==
LOC: D.MAMMO 10:45
PROVIDERS: ATTEND Clinical Nurse Specialist Family Health
DX: Z12.31 Encounter for screening mammogram for malignant neoplasm of breast (principal)

== ENCOUNTER 2020-09-08 10:15 | Outpatient (CLI) | payer MEDICARE, MEDICAID ==
[2019-07-14 15:19] VITALS: BMI 25.8
== END 2020-09-08 23:59 | disposition home or self-care (01) ==
LOC: D.MAMMO 10:15
PROVIDERS: ATTEND Obstetrics & Gynecology
DX: N63.11 Unspecified lump in the right breast, upper outer quadrant (principal)